=== PATIENT | female | born 1955 | race Caucasian/White ===

== ENCOUNTER 2020-04-23 16:35 | Observation (INO) ==
[2020-04-23 18:01] LABS: Basophils % 0.6 %; Eosinophils % 0.3 %; Hematocrit 42.4 % (35.3-44.9); Hemoglobin 13.3 g/dL (11.5-15.4); Immature Granulocytes % 0.9 % (0-4); Lymphocytes # 0.4 K/mcL (0.6-4.6); Lymphocytes % 10.3 %; Mean Corpuscular HGB Conc 31.4 g/dL (31.6-35.5); Mean Corpuscular Hemoglobin 26.7 pg (28.0-33.3); Mean Platelet Volume 12.5 fL (9.4-12.4); Monocytes # 0.7 K/mcL (0.0-1.3); Monocytes % 19.1 %; Platelet Count 119 K/mcL (140-400); Red Blood Count 4.99 M/mcL (3.82-4.97); Red Cell Distribution Width 16.2 % (11.5-14.5); Segmented Neutrophils % 68.8 %; White Blood Count 3.4 K/mcL (4.3-11.1)
[2020-04-23 18:02] LABS: Neutrophils # 2.3 K/mcL (1.6-8.9)
[2020-04-23 18:15] LABS: Alanine Aminotransferase 22 Units/L (7-52); Albumin 4.1 g/dL (3.5-5.7); Albumin/Globulin Ratio 1.3 (1.1-2.2); Alkaline Phosphatase 57 Units/L (34-104); Aspartate Amino Transferase 29 Units/L (13-39); BUN/Creatinine Ratio 22 (6-26); Bilirubin,Direct 0.2 mg/dL (0.0-0.2); Bilirubin,Indirect 0.4 mg/dL (0.0-1.0); Bilirubin,Total 0.6 mg/dL (0.3-1.0); Blood Urea Nitrogen 15 mg/dL (8-23); Calcium 8.8 mg/dL (8.6-10.3); Carbon Dioxide 27 mEq/L (23-29); Chloride 99 mEq/L (98-107); Globulin 3.2 g/dL (2.4-3.5); Glucose 112 mg/dL (70-105); Osmolality,Calculated 286 (280-300); Potassium 3.1 mEq/L (3.5-5.1); Sodium 137 mEq/L (136-145); Total Protein 7.3 g/dL (6.4-8.9); eGFR For African Americans > 60 (> 60); eGFR For Non-African Americans > 60 (> 60)
[2020-04-23 18:18] LABS: Platelet Estimate Decreased (Normal)
[2020-04-23] MEDS ORDERED: Cefepime HCl 1,000 MG in Water for inj. (sterile) 10 ML IVP STA (19:53)
[2020-04-23] MEDS ORDERED: Ondansetron 4 MG/2 ML VIAL IVP PRN (20:46)
[2020-04-23] MEDS ORDERED: Naloxone 0.4 MG/ML INJ IVP PRN (20:46)
[2020-04-23] MEDS ORDERED: Azithromycin 500 MG in 0.9 % Sodium Chloride 250 ML IVPB ONE (20:55)
[2020-04-24] MEDS: *HR* Enoxaparin 40 MG/0.4 ML SYRINGE SQ SCH (05:42)
[2020-04-24 07:15] LABS: Hematocrit 38.9 % (35.3-44.9); Hemoglobin 12.5 g/dL (11.5-15.4); Mean Corpuscular HGB Conc 32.1 g/dL (31.6-35.5); Mean Corpuscular Hemoglobin 27.3 pg (28.0-33.3); Mean Corpuscular Volume 84.9 fL (83.0-100.0); Mean Platelet Volume 12.4 fL (9.4-12.4); Platelet Count 104 K/mcL (140-400); Red Blood Count 4.58 M/mcL (3.82-4.97); Red Cell Distribution Width 16.4 % (11.5-14.5); White Blood Count 2.4 K/mcL (4.3-11.1)
[2020-04-24 07:24] LABS: INR 1.2; Prothrombin Time 14.3 Seconds (9.4-12.1)
[2020-04-24 07:35] LABS: BUN/Creatinine Ratio 25 (6-26); Blood Urea Nitrogen 15 mg/dL (8-23); Calcium 8.2 mg/dL (8.6-10.3); Carbon Dioxide 26 mEq/L (23-29); Chloride 103 mEq/L (98-107); Glucose 105 mg/dL (70-105); Osmolality,Calculated 287 (280-300); Potassium 3.2 mEq/L (3.5-5.1); Sodium 138 mEq/L (136-145); Troponin I < 0.03 ng/mL (< 0.04); eGFR For African Americans > 60 (> 60); eGFR For Non-African Americans > 60 (> 60)
[2020-04-24 07:58] LABS: Basophils # 0.1 K/mcL (0.0-0.2); Lymphocytes # 0.5 K/mcL (0.6-4.6); Monocytes # 0.3 K/mcL (0.0-1.3); Neutrophils # 1.4 K/mcL (1.6-8.9); Platelet Estimate Decreased (Normal); Reactive Lymphocytes Present (Not Present)
[2020-04-24] MEDS: levoFLOXacin 750 MG TABLET PO SCH (08:28)
[2020-04-24] MEDS: Dexamethasone 4 MG/ML VIAL IVP SCH (08:28)
[2020-04-24] MEDS: hydroCHLOROthiazide 25 MG TABLET PO SCH (08:29)
[2020-04-25 00:57] LABS: Bilirubin,Urine Negative (Negative); Blood,Urine Negative (Negative); Clarity,Urine Clear (Clear); Color,Urine Yellow (Yellow); Glucose,Urine (UA) Normal (Normal); Ketones,Urine Negative (Negative); Leukocyte Esterase,Urine Negative (Negative); Mucus,Urine Few per lpf (None-Few); Nitrite,Urine Negative (Negative); PH,Urine 6.5 pH Units (5.0-8.0); Protein,Urine 30 mg/dL (Neg-Trace); RBC,Urine 0-3 per hpf (0-3); Specific Gravity,Urine > 1.030 (1.010-1.025); Urobilinogen,Urine Normal (Normal); WBC,Urine 0-3 per hpf (0-3)
[2020-04-25] MEDS: *HR* Enoxaparin 40 MG/0.4 ML SYRINGE SQ SCH (05:56)
[2020-04-25 06:44] LABS: Basophils % 0.3 %; Hematocrit 37.8 % (35.3-44.9); Hemoglobin 11.8 g/dL (11.5-15.4); Immature Granulocytes % 3.4 % (0-4); Lymphocytes # 0.4 K/mcL (0.6-4.6); Lymphocytes % 11.9 %; Mean Corpuscular HGB Conc 31.2 g/dL (31.6-35.5); Mean Corpuscular Hemoglobin 26.8 pg (28.0-33.3); Mean Corpuscular Volume 85.9 fL (83.0-100.0); Mean Platelet Volume 12.2 fL (9.4-12.4); Monocytes # 0.5 K/mcL (0.0-1.3); Neutrophils # 2.2 K/mcL (1.6-8.9); Platelet Count 107 K/mcL (140-400); Red Cell Distribution Width 16.2 % (11.5-14.5); Segmented Neutrophils % 69.4 %; White Blood Count 3.2 K/mcL (4.3-11.1)
[2020-04-25 06:52] LABS: Fibrinogen 430 mg/dL (169-393)
[2020-04-25 06:53] LABS: D-Dimer 877 ng/mLFEU (0-500)
[2020-04-25 07:03] LABS: BUN/Creatinine Ratio 23 (6-26); Blood Urea Nitrogen 15 mg/dL (8-23); Calcium 8.6 mg/dL (8.6-10.3); Carbon Dioxide 28 mEq/L (23-29); Chloride 106 mEq/L (98-107); Glucose 105 mg/dL (70-105); Lactate Dehydrogenase 303 Units/L (140-271); Magnesium 1.9 mg/dL (1.6-2.6); Osmolality,Calculated 295 (280-300); Phosphorous 3.2 mg/dL (2.7-4.5); Potassium 3.5 mEq/L (3.5-5.1); Sodium 142 mEq/L (136-145); eGFR For African Americans > 60 (> 60); eGFR For Non-African Americans > 60 (> 60)
[2020-04-25 08:05] VITALS: BP 130/83
[2020-04-25] MEDS: hydroCHLOROthiazide 25 MG TABLET PO SCH (08:52)
[2020-04-25] MEDS: levoFLOXacin 750 MG TABLET PO SCH (08:52)
[2020-04-25] MEDS: Dexamethasone 4 MG/ML VIAL IVP SCH (08:52)
[2020-04-25] MEDS ORDERED: Cholecalciferol (D-3) 1,000 UNIT (25MCG) TABLET PO SCH (09:00)
== END 2020-04-25 11:54 | disposition home or self-care (01) ==
LOC: EMEROOARM 16:35 → 2NENU 16:35 → SUATTDRO 20:12 → 2NENU 20:53
PROVIDERS: ADMIT Family Medicine; ATTEND Internal Medicine

== ENCOUNTER 2020-04-29 08:19 | Inpatient (IN) ==
[2020-04-29] MEDS ORDERED: Naloxone 0.4 MG/ML INJ IVP PRN (13:27)
[2020-04-29] MEDS ORDERED: Potassium Chloride 20 MEQ, Lidocaine 1% 2 ML in 0.9 % Sodium Chloride 250 ML IVPB ONE (13:43)
[2020-04-29] MEDS: Dexamethasone 4 MG/ML VIAL IVP SCH (15:17)
[2020-04-29] MEDS: levoFLOXacin 750 MG TABLET PO SCH (15:18)
[2020-04-29] MEDS: *HR* Heparin 5,000 UNIT/ML VIAL SQ SCH ×2 (15:19→21:08)
[2020-04-29] MEDS ORDERED: 0.9 % Sodium Chloride 250 ML ONE (22:58)
[2020-04-30] MEDS: *HR* Heparin 5,000 UNIT/ML VIAL SQ SCH (06:11)
[2020-04-30] MEDS: Dexamethasone 4 MG/ML VIAL IVP SCH (08:21)
[2020-04-30] MEDS: levoFLOXacin 750 MG TABLET PO SCH (08:21)
[2020-04-30 09:57] LABS: Basophils % 0.4 %; Eosinophils % 0.2 %; Hematocrit 37.1 % (35.3-44.9); Hemoglobin 11.5 g/dL (11.5-15.4); Immature Granulocytes % 1.3 % (0-4); Immature Platelets 8.6 % (1.1-6.1); Lymphocytes # 0.3 K/mcL (0.6-4.6); Lymphocytes % 5.2 %; Mean Corpuscular Hemoglobin 26.7 pg (28.0-33.3); Mean Corpuscular Volume 86.1 fL (83.0-100.0); Mean Platelet Volume 11.7 fL (9.4-12.4); Monocytes # 0.3 K/mcL (0.0-1.3); Monocytes % 5.9 %; Neutrophils # 4.9 K/mcL (1.6-8.9); Platelet Count 130 K/mcL (140-400); Red Blood Count 4.31 M/mcL (3.82-4.97); Red Cell Distribution Width 16.5 % (11.5-14.5); White Blood Count 5.6 K/mcL (4.3-11.1)
[2020-04-30 10:09] LABS: Alanine Aminotransferase 19 Units/L (7-52); Albumin 3.5 g/dL (3.5-5.7); Albumin/Globulin Ratio 1.1 (1.1-2.2); Alkaline Phosphatase 48 Units/L (34-104); Aspartate Amino Transferase 40 Units/L (13-39); BUN/Creatinine Ratio 26 (6-26); Bilirubin,Total 0.5 mg/dL (0.3-1.0); Blood Urea Nitrogen 14 mg/dL (8-23); Calcium 8.4 mg/dL (8.6-10.3); Carbon Dioxide 25 mEq/L (23-29); Chloride 105 mEq/L (98-107); Globulin 3.1 g/dL (2.4-3.5); Glucose 135 mg/dL (70-105); Osmolality,Calculated 293 (280-300); Potassium 3.8 mEq/L (3.5-5.1); Sodium 140 mEq/L (136-145); Total Protein 6.6 g/dL (6.4-8.9); eGFR For African Americans > 60 (> 60); eGFR For Non-African Americans > 60 (> 60)
[2020-04-30] MEDS: Loratadine 10 MG TABLET PO SCH (11:07)
[2020-04-30] MEDS: *HR* Enoxaparin 40 MG/0.4 ML SYRINGE SQ SCH (15:49)
[2020-04-30] MEDS ORDERED: Furosemide 20 MG/2 ML VIAL IVP ONE (17:29)
[2020-04-30] MEDS: Ipratropium 1 PUFF INHALER IH PRN (18:56)
[2020-04-30] MEDS ORDERED: 0.9 % Sodium Chloride 500 ML ONE (21:37)
[2020-05-01] MEDS: *HR* Enoxaparin 40 MG/0.4 ML SYRINGE SQ SCH (06:02)
[2020-05-01] MEDS: Azithromycin 250 MG TABLET PO SCH (08:27)
[2020-05-01] MEDS: Spironolactone 25 MG TABLET PO SCH (08:27)
[2020-05-01] MEDS: Loratadine 10 MG TABLET PO SCH (08:28)
[2020-05-01] MEDS: Furosemide 40 MG/4 ML VIAL IVP SCH ×2 (08:28→20:48)
[2020-05-01] MEDS: Dexamethasone 4 MG/ML VIAL IVP SCH (08:28)
[2020-05-01] MEDS ORDERED: lisinopriL 5 MG TABLET PO SCH (09:00)
[2020-05-01 11:30] LABS: Hemoglobin 11.3 g/dL (11.5-15.4); Immature Granulocytes % 0.9 % (0-4); Lymphocytes # 0.2 K/mcL (0.6-4.6); Mean Corpuscular HGB Conc 32.3 g/dL (31.6-35.5); Mean Corpuscular Hemoglobin 27.9 pg (28.0-33.3); Mean Corpuscular Volume 86.4 fL (83.0-100.0); Mean Platelet Volume 11.6 fL (9.4-12.4); Monocytes # 0.4 K/mcL (0.0-1.3); Monocytes % 4.7 %; Neutrophils # 7.3 K/mcL (1.6-8.9); Platelet Count 149 K/mcL (140-400); Red Blood Count 4.05 M/mcL (3.82-4.97); Red Cell Distribution Width 16.3 % (11.5-14.5); Segmented Neutrophils % 92.4 %; White Blood Count 7.9 K/mcL (4.3-11.1)
[2020-05-01 11:38] LABS: Platelet Estimate Normal (Normal)
[2020-05-01 11:42] LABS: BUN/Creatinine Ratio 27 (6-26); Blood Urea Nitrogen 16 mg/dL (8-23); Calcium 8.4 mg/dL (8.6-10.3); Carbon Dioxide 25 mEq/L (23-29); Chloride 102 mEq/L (98-107); Glucose 130 mg/dL (70-105); Osmolality,Calculated 289 (280-300); Potassium 3.6 mEq/L (3.5-5.1); Sodium 138 mEq/L (136-145); eGFR For African Americans > 60 (> 60); eGFR For Non-African Americans > 60 (> 60)
[2020-05-02 02:33] LABS: Basophils % 0.2 %; Hematocrit 36.2 % (35.3-44.9); Hemoglobin 11.5 g/dL (11.5-15.4); Immature Granulocytes % 0.8 % (0-4); Lymphocytes # 0.4 K/mcL (0.6-4.6); Lymphocytes % 5.9 %; Mean Corpuscular HGB Conc 31.8 g/dL (31.6-35.5); Mean Corpuscular Hemoglobin 26.9 pg (28.0-33.3); Mean Corpuscular Volume 84.6 fL (83.0-100.0); Mean Platelet Volume 11.7 fL (9.4-12.4); Monocytes # 0.3 K/mcL (0.0-1.3); Monocytes % 5.1 %; Neutrophils # 5.7 K/mcL (1.6-8.9); Platelet Count 180 K/mcL (140-400); Red Blood Count 4.28 M/mcL (3.82-4.97); Red Cell Distribution Width 16.2 % (11.5-14.5); White Blood Count 6.4 K/mcL (4.3-11.1)
[2020-05-02 02:50] LABS: BUN/Creatinine Ratio 28 (6-26); Blood Urea Nitrogen 18 mg/dL (8-23); Calcium 8.7 mg/dL (8.6-10.3); Carbon Dioxide 25 mEq/L (23-29); Chloride 101 mEq/L (98-107); Glucose 126 mg/dL (70-105); Osmolality,Calculated 289 (280-300); Potassium 3.7 mEq/L (3.5-5.1); Sodium 138 mEq/L (136-145); eGFR For African Americans > 60 (> 60); eGFR For Non-African Americans > 60 (> 60)
[2020-05-02 03:08] LABS: Magnesium 2.2 mg/dL (1.6-2.6)
[2020-05-02 03:14] LABS: D-Dimer 1558 ng/mLFEU (0-500)
[2020-05-02 03:16] LABS: Fibrinogen 822 mg/dL (169-393)
[2020-05-02] MEDS: *HR* Enoxaparin 40 MG/0.4 ML SYRINGE SQ SCH (06:10)
[2020-05-02] MEDS ORDERED: *HR* Heparin 5,000 UNIT/ML VIAL IVP ONE (07:35)
[2020-05-02] MEDS ORDERED: *HR* Heparin 5,000 UNIT/ML VIAL IVP PRN ×2 (07:35)
[2020-05-02 08:14] LABS: Hematocrit 33.4 % (35.3-44.9); Hemoglobin 10.6 g/dL (11.5-15.4); Mean Corpuscular HGB Conc 31.7 g/dL (31.6-35.5); Mean Corpuscular Hemoglobin 26.8 pg (28.0-33.3); Mean Corpuscular Volume 84.3 fL (83.0-100.0); Mean Platelet Volume 11.2 fL (9.4-12.4); Platelet Count 157 K/mcL (140-400); Red Blood Count 3.96 M/mcL (3.82-4.97); Red Cell Distribution Width 16.2 % (11.5-14.5); White Blood Count 6.4 K/mcL (4.3-11.1)
[2020-05-02 08:20] LABS: Heparin anti-factor XA UFH 0.2 IU/mL (0.30-0.70); INR 1.3; Prothrombin Time 14.8 Seconds (9.4-12.1)
[2020-05-02] MEDS: Loratadine 10 MG TABLET PO SCH (08:59)
[2020-05-02] MEDS: Azithromycin 250 MG TABLET PO SCH (08:59)
[2020-05-02] MEDS: Dexamethasone 4 MG/ML VIAL IVP SCH (09:00)
[2020-05-02] MEDS: Furosemide 40 MG/4 ML VIAL IVP SCH ×2 (09:00→20:07)
[2020-05-02] MEDS: Spironolactone 25 MG TABLET PO SCH (09:00)
[2020-05-02] MEDS: Heparin 25,000UNIT/250ML 1/2NS 25,000 UNIT/250 ML IV.SOLN IVC SCH (09:01)
[2020-05-03 00:38] LABS: Basophils % 0.2 %; Hematocrit 33.6 % (35.3-44.9); Hemoglobin 10.9 g/dL (11.5-15.4); Immature Granulocytes % 0.7 % (0-4); Lymphocytes # 0.2 K/mcL (0.6-4.6); Lymphocytes % 3.3 %; Mean Corpuscular HGB Conc 32.4 g/dL (31.6-35.5); Mean Corpuscular Hemoglobin 27.7 pg (28.0-33.3); Mean Corpuscular Volume 85.3 fL (83.0-100.0); Mean Platelet Volume 11.8 fL (9.4-12.4); Monocytes # 0.3 K/mcL (0.0-1.3); Monocytes % 4.8 %; Neutrophils # 5.5 K/mcL (1.6-8.9); Platelet Count 173 K/mcL (140-400); Red Blood Count 3.94 M/mcL (3.82-4.97); Red Cell Distribution Width 15.6 % (11.5-14.5)
[2020-05-03 00:56] LABS: BUN/Creatinine Ratio 36 (6-26); Blood Urea Nitrogen 20 mg/dL (8-23); Calcium 8.6 mg/dL (8.6-10.3); Carbon Dioxide 25 mEq/L (23-29); Chloride 101 mEq/L (98-107); Glucose 129 mg/dL (70-105); Osmolality,Calculated 290 (280-300); Potassium 3.6 mEq/L (3.5-5.1); Sodium 138 mEq/L (136-145); eGFR For African Americans > 60 (> 60); eGFR For Non-African Americans > 60 (> 60)
[2020-05-03] MEDS: Heparin 25,000UNIT/250ML 1/2NS 25,000 UNIT/250 ML IV.SOLN IVC SCH (07:31)
[2020-05-03] MEDS: Loratadine 10 MG TABLET PO SCH (07:58)
[2020-05-03] MEDS: Azithromycin 250 MG TABLET PO SCH (07:58)
[2020-05-03] MEDS: Spironolactone 25 MG TABLET PO SCH (07:58)
[2020-05-03] MEDS: Dexamethasone 4 MG/ML VIAL IVP SCH (07:58)
[2020-05-03] MEDS: Furosemide 40 MG/4 ML VIAL IVP SCH ×2 (07:59→20:53)
[2020-05-03] MEDS ORDERED: amLODIPine 5 MG TABLET PO SCH (09:00)
[2020-05-04] MEDS: Benzonatate 100 MG CAPSULE PO PRN ×2 (06:22→21:16)
[2020-05-04 06:33] LABS: Basophils % 0.2 %; Eosinophils # 0.1 K/mcL (0.0-0.6); Eosinophils % 0.6 %; Hematocrit 34.6 % (35.3-44.9); Hemoglobin 11.2 g/dL (11.5-15.4); Immature Granulocytes % 1.2 % (0-4); Lymphocytes # 0.3 K/mcL (0.6-4.6); Lymphocytes % 3.1 %; Mean Corpuscular HGB Conc 32.4 g/dL (31.6-35.5); Mean Corpuscular Volume 83.4 fL (83.0-100.0); Mean Platelet Volume 11.7 fL (9.4-12.4); Monocytes # 0.3 K/mcL (0.0-1.3); Monocytes % 3.5 %; Neutrophils # 7.8 K/mcL (1.6-8.9); Platelet Count 194 K/mcL (140-400); Red Blood Count 4.15 M/mcL (3.82-4.97); Red Cell Distribution Width 15.4 % (11.5-14.5); Segmented Neutrophils % 91.4 %; White Blood Count 8.6 K/mcL (4.3-11.1)
[2020-05-04 06:40] LABS: D-Dimer 1573 ng/mLFEU (0-500)
[2020-05-04 06:42] LABS: Fibrinogen 793 mg/dL (169-393)
[2020-05-04 06:56] LABS: BUN/Creatinine Ratio 40 (6-26); Blood Urea Nitrogen 19 mg/dL (8-23); Calcium 8.7 mg/dL (8.6-10.3); Carbon Dioxide 26 mEq/L (23-29); Chloride 98 mEq/L (98-107); Glucose 98 mg/dL (70-105); Osmolality,Calculated 290 (280-300); Potassium 3.2 mEq/L (3.5-5.1); Sodium 139 mEq/L (136-145); eGFR For African Americans > 60 (> 60); eGFR For Non-African Americans > 60 (> 60)
[2020-05-04] MEDS: Loratadine 10 MG TABLET PO SCH (07:39)
[2020-05-04] MEDS: Spironolactone 25 MG TABLET PO SCH (07:39)
[2020-05-04] MEDS: Furosemide 40 MG/4 ML VIAL IVP SCH ×2 (07:39→21:00)
[2020-05-04] MEDS: Azithromycin 250 MG TABLET PO SCH (07:39)
[2020-05-04] MEDS: Dexamethasone 4 MG/ML VIAL IVP SCH (07:40)
[2020-05-04] MEDS: Heparin 25,000UNIT/250ML 1/2NS 25,000 UNIT/250 ML IV.SOLN IVC SCH (07:40)
[2020-05-04] MEDS ORDERED: amLODIPine 5 MG TABLET PO SCH (09:00)
[2020-05-04] MEDS: *HR* Enoxaparin 40 MG/0.4 ML SYRINGE SQ SCH (13:09)
[2020-05-05] MEDS: Benzonatate 100 MG CAPSULE PO PRN (05:37)
[2020-05-05 05:41] LABS: Basophils % 0.2 %; Eosinophils # 0.1 K/mcL (0.0-0.6); Eosinophils % 0.5 %; Hematocrit 36.2 % (35.3-44.9); Hemoglobin 11.3 g/dL (11.5-15.4); Immature Granulocytes % 1.7 % (0-4); Lymphocytes # 0.3 K/mcL (0.6-4.6); Lymphocytes % 2.8 %; Mean Corpuscular HGB Conc 31.2 g/dL (31.6-35.5); Mean Corpuscular Hemoglobin 26.7 pg (28.0-33.3); Mean Corpuscular Volume 85.4 fL (83.0-100.0); Mean Platelet Volume 11.8 fL (9.4-12.4); Monocytes # 0.3 K/mcL (0.0-1.3); Monocytes % 2.8 %; Neutrophils # 8.6 K/mcL (1.6-8.9); Platelet Count 219 K/mcL (140-400); Red Blood Count 4.24 M/mcL (3.82-4.97); Red Cell Distribution Width 15.3 % (11.5-14.5); White Blood Count 9.3 K/mcL (4.3-11.1)
[2020-05-05 06:00] LABS: BUN/Creatinine Ratio 38 (6-26); Blood Urea Nitrogen 19 mg/dL (8-23); Calcium 8.8 mg/dL (8.6-10.3); Carbon Dioxide 27 mEq/L (23-29); Chloride 99 mEq/L (98-107); Glucose 101 mg/dL (70-105); Osmolality,Calculated 290 (280-300); Potassium 3.6 mEq/L (3.5-5.1); Sodium 139 mEq/L (136-145); eGFR For African Americans > 60 (> 60); eGFR For Non-African Americans > 60 (> 60)
[2020-05-05 06:09] LABS: Fibrinogen 853 mg/dL (169-393)
[2020-05-05 08:57] LABS: D-Dimer 4234 ng/mLFEU (0-500)
[2020-05-05] MEDS: *HR* Enoxaparin 40 MG/0.4 ML SYRINGE SQ SCH ×2 (09:03→20:11)
[2020-05-05] MEDS: Loratadine 10 MG TABLET PO SCH (09:03)
[2020-05-05] MEDS: Furosemide 40 MG/4 ML VIAL IVP SCH ×2 (09:03→20:10)
[2020-05-05] MEDS: Azithromycin 250 MG TABLET PO SCH (09:03)
[2020-05-05] MEDS: Dexamethasone 4 MG/ML VIAL IVP SCH (09:03)
[2020-05-05] MEDS: Ipratropium 1 PUFF INHALER IH SCH ×3 (11:44→22:05)
[2020-05-05] MEDS ORDERED: Dexamethasone Sodium Phos/PF 10 MG/ML VIAL IVP ONE (13:47)
[2020-05-05] MEDS: Heparin 25,000UNIT/250ML 1/2NS 25,000 UNIT/250 ML IV.SOLN IVC SCH (22:32)
[2020-05-06] MEDS: Ipratropium 1 PUFF INHALER IH SCH ×4 (02:50→22:17)
[2020-05-06] MEDS: Doxycycline 100 MG in 0.9 % Sodium Chloride Mini Bag 100 ML IVPB SCH ×2 (05:31→16:52)
[2020-05-06] MEDS ORDERED: Dexamethasone Sodium Phos/PF 10 MG/ML VIAL IVP SCH (09:00)
[2020-05-06] MEDS: Dexamethasone Sodium Phos/PF 10 MG/ML VIAL IVP SCH (09:38)
[2020-05-06] MEDS: Furosemide 40 MG/4 ML VIAL IVP SCH ×2 (09:38→21:33)
[2020-05-06] MEDS: Loratadine 10 MG TABLET PO SCH (09:39)
[2020-05-06] MEDS: *HR* Enoxaparin 40 MG/0.4 ML SYRINGE SQ SCH (09:39)
[2020-05-06 09:56] LABS: Hematocrit 36.9 % (35.3-44.9); Hemoglobin 11.7 g/dL (11.5-15.4); Mean Corpuscular HGB Conc 31.7 g/dL (31.6-35.5); Mean Corpuscular Hemoglobin 26.6 pg (28.0-33.3); Mean Corpuscular Volume 83.9 fL (83.0-100.0); Mean Platelet Volume 11.1 fL (9.4-12.4); Platelet Count 225 K/mcL (140-400); Red Cell Distribution Width 15.3 % (11.5-14.5)
[2020-05-06 10:02] LABS: INR 1.4; Prothrombin Time 15.6 Seconds (9.4-12.1)
[2020-05-06 10:04] LABS: Activated Partial Thrombo Time 21.9 Seconds (26.0-36.0)
[2020-05-06 10:18] LABS: Alanine Aminotransferase 45 Units/L (7-52); Albumin 3.5 g/dL (3.5-5.7); Alkaline Phosphatase 82 Units/L (34-104); Aspartate Amino Transferase 37 Units/L (13-39); BUN/Creatinine Ratio 48 (6-26); Bilirubin,Total 0.5 mg/dL (0.3-1.0); Blood Urea Nitrogen 25 mg/dL (8-23); C-Reactive Protein 255 mg/L (Less than 10); Calcium 8.9 mg/dL (8.6-10.3); Carbon Dioxide 27 mEq/L (23-29); Chloride 97 mEq/L (98-107); Globulin 3.5 g/dL (2.4-3.5); Glucose 136 mg/dL (70-105); Lactate Dehydrogenase 634 Units/L (140-271); Magnesium 2.4 mg/dL (1.6-2.6); Osmolality,Calculated 288 (280-300); Phosphorous 3.6 mg/dL (2.7-4.5); Potassium 3.6 mEq/L (3.5-5.1); Sodium 136 mEq/L (136-145); eGFR For African Americans > 60 (> 60); eGFR For Non-African Americans > 60 (> 60)
[2020-05-06 10:36] LABS: Ferritin 1353 ng/mL (10-120)
[2020-05-06] MEDS ORDERED: *HR* Heparin 5,000 UNIT/ML VIAL IVP ONE (15:02)
[2020-05-06] MEDS ORDERED: *HR* Heparin 5,000 UNIT/ML VIAL IVP PRN (15:02)
[2020-05-06] MEDS ORDERED: Heparin 25,000UNIT/250ML 1/2NS 25,000 UNIT/250 ML IV.SOLN IVC SCH (15:15)
[2020-05-06 15:55] LABS: Heparin anti-factor XA UFH 0.34 IU/mL (0.30-0.70)
[2020-05-06 15:56] LABS: INR 1.3; Prothrombin Time 15.1 Seconds (9.4-12.1)
[2020-05-06] MEDS: Heparin 25,000UNIT/250ML 1/2NS 25,000 UNIT/250 ML IV.SOLN IVC SCH (16:42)
[2020-05-07 01:33] LABS: Hematocrit 38.2 % (35.3-44.9); Mean Corpuscular HGB Conc 31.4 g/dL (31.6-35.5); Mean Corpuscular Hemoglobin 26.5 pg (28.0-33.3); Mean Corpuscular Volume 84.5 fL (83.0-100.0); Mean Platelet Volume 10.9 fL (9.4-12.4); Platelet Count 260 K/mcL (140-400); Red Blood Count 4.52 M/mcL (3.82-4.97); Red Cell Distribution Width 15.6 % (11.5-14.5); White Blood Count 9.9 K/mcL (4.3-11.1)
[2020-05-07 01:54] LABS: BUN/Creatinine Ratio 47 (6-26); Blood Urea Nitrogen 31 mg/dL (8-23); C-Reactive Protein 153 mg/L (Less than 10); Calcium 8.8 mg/dL (8.6-10.3); Carbon Dioxide 28 mEq/L (23-29); Chloride 95 mEq/L (98-107); Glucose 167 mg/dL (70-105); Lactate Dehydrogenase 615 Units/L (140-271); Magnesium 2.4 mg/dL (1.6-2.6); Osmolality,Calculated 294 (280-300); Phosphorous 4.1 mg/dL (2.7-4.5); Potassium 3.7 mEq/L (3.5-5.1); Sodium 137 mEq/L (136-145); eGFR For African Americans > 60 (> 60); eGFR For Non-African Americans > 60 (> 60)
[2020-05-07] MEDS: *HR* Heparin 5,000 UNIT/ML VIAL IVP PRN ×2 (02:02→14:45)
[2020-05-07 02:18] LABS: Ferritin > 1500 ng/mL (10-120)
[2020-05-07] MEDS: Ipratropium 1 PUFF INHALER IH SCH ×4 (04:23→22:28)
[2020-05-07] MEDS: Doxycycline 100 MG in 0.9 % Sodium Chloride Mini Bag 100 ML IVPB SCH (06:06)
[2020-05-07] MEDS: Dexamethasone Sodium Phos/PF 10 MG/ML VIAL IVP SCH (08:03)
[2020-05-07] MEDS: Furosemide 40 MG/4 ML VIAL IVP SCH (08:04)
[2020-05-07] MEDS: Loratadine 10 MG TABLET PO SCH (08:04)
[2020-05-07] MEDS: Heparin 25,000UNIT/250ML 1/2NS 25,000 UNIT/250 ML IV.SOLN IVC SCH (09:46)
[2020-05-07] MEDS ORDERED: Furosemide 40 MG/4 ML VIAL IVP STA (17:29)
[2020-05-07] MEDS: Doxycycline 100 MG CAPSULE PO SCH (21:18)
[2020-05-08] MEDS: Heparin 25,000UNIT/250ML 1/2NS 25,000 UNIT/250 ML IV.SOLN IVC SCH (02:07)
[2020-05-08] MEDS: Ipratropium 1 PUFF INHALER IH SCH ×4 (03:59→22:07)
[2020-05-08 05:36] LABS: Hematocrit 38.7 % (35.3-44.9); Hemoglobin 12.5 g/dL (11.5-15.4); Mean Corpuscular HGB Conc 32.3 g/dL (31.6-35.5); Mean Corpuscular Hemoglobin 27.4 pg (28.0-33.3); Mean Corpuscular Volume 84.9 fL (83.0-100.0); Mean Platelet Volume 11.3 fL (9.4-12.4); Platelet Count 270 K/mcL (140-400); Red Blood Count 4.56 M/mcL (3.82-4.97); Red Cell Distribution Width 15.3 % (11.5-14.5); White Blood Count 10.9 K/mcL (4.3-11.1)
[2020-05-08 05:54] LABS: BUN/Creatinine Ratio 59 (6-26); Blood Urea Nitrogen 36 mg/dL (8-23); Carbon Dioxide 28 mEq/L (23-29); Chloride 98 mEq/L (98-107); Glucose 138 mg/dL (70-105); Lactate Dehydrogenase 556 Units/L (140-271); Magnesium 2.4 mg/dL (1.6-2.6); Osmolality,Calculated 297 (280-300); Phosphorous 4.2 mg/dL (2.7-4.5); Potassium 3.5 mEq/L (3.5-5.1); Sodium 138 mEq/L (136-145); eGFR For African Americans > 60 (> 60); eGFR For Non-African Americans > 60 (> 60)
[2020-05-08 06:11] LABS: Ferritin 1479 ng/mL (10-120)
[2020-05-08 09:13] LABS: C-Reactive Protein 85 mg/L (Less than 10)
[2020-05-08] MEDS: Furosemide 40 MG/4 ML VIAL IVP SCH (09:16)
[2020-05-08] MEDS: Loratadine 10 MG TABLET PO SCH ×3 (09:16→11:30)
[2020-05-08] MEDS: Doxycycline 100 MG CAPSULE PO SCH ×4 (09:16→19:24)
[2020-05-08] MEDS: Dexamethasone Sodium Phos/PF 10 MG/ML VIAL IVP SCH (09:17)
[2020-05-08 10:50] LABS: ABG Base Excess 5 mEq/L (-2 to 3); ABG HCO3 28 mEq/L (21-27); ABG Oxygen Saturation 89 % (95-98); ABG PCO2 37 mmHg (35-45); ABG PH 7.49 pH Units (7.32-7.45); ABG PO2 52 mmHg (85-104); ABG TCO2 29 mEq/L (20-26)
[2020-05-08] MEDS ORDERED: *HR* Enoxaparin 40 MG/0.4 ML SYRINGE SQ ONE (16:00)
[2020-05-09] MEDS: Ipratropium 1 PUFF INHALER IH SCH ×5 (03:53→20:30)
[2020-05-09] MEDS: Loratadine 10 MG TABLET PO SCH (07:29)
[2020-05-09] MEDS: Doxycycline 100 MG CAPSULE PO SCH ×2 (07:29→19:28)
[2020-05-09] MEDS: Furosemide 40 MG/4 ML VIAL IVP SCH (07:30)
[2020-05-09] MEDS: Dexamethasone Sodium Phos/PF 10 MG/ML VIAL IVP SCH (07:30)
[2020-05-09 10:45] LABS: Fibrinogen 672 mg/dL (169-393)
[2020-05-09 11:05] LABS: D-Dimer 12231 ng/mLFEU (0-500)
[2020-05-09 11:10] LABS: Alanine Aminotransferase 41 Units/L (7-52); Albumin 3.7 g/dL (3.5-5.7); Albumin/Globulin Ratio 1.2 (1.1-2.2); Alkaline Phosphatase 88 Units/L (34-104); Aspartate Amino Transferase 38 Units/L (13-39); BUN/Creatinine Ratio 59 (6-26); Bilirubin,Total 0.6 mg/dL (0.3-1.0); Blood Urea Nitrogen 36 mg/dL (8-23); C-Reactive Protein 109 mg/L (Less than 10); Calcium 8.9 mg/dL (8.6-10.3); Carbon Dioxide 21 mEq/L (23-29); Chloride 97 mEq/L (98-107); Ferritin 1219 ng/mL (10-120); Globulin 3.2 g/dL (2.4-3.5); Glucose 156 mg/dL (70-105); Lactate Dehydrogenase 677 Units/L (140-271); Magnesium 2.2 mg/dL (1.6-2.6); Osmolality,Calculated 290 (280-300); Phosphorous 3.6 mg/dL (2.7-4.5); Potassium 3.8 mEq/L (3.5-5.1); Sodium 134 mEq/L (136-145); Total Protein 6.9 g/dL (6.4-8.9); eGFR For African Americans > 60 (> 60); eGFR For Non-African Americans > 60 (> 60)
[2020-05-09 13:20] LABS: Basophils % 0.2 %; Eosinophils % 0.1 %; Hematocrit 39.9 % (35.3-44.9); Immature Granulocytes % 3.9 % (0-4); Lymphocytes # 0.2 K/mcL (0.6-4.6); Lymphocytes % 1.2 %; Mean Corpuscular HGB Conc 32.6 g/dL (31.6-35.5); Mean Corpuscular Hemoglobin 27.3 pg (28.0-33.3); Mean Corpuscular Volume 83.6 fL (83.0-100.0); Mean Platelet Volume 11.4 fL (9.4-12.4); Monocytes # 0.4 K/mcL (0.0-1.3); Monocytes % 2.5 %; Platelet Count 251 K/mcL (140-400); Red Blood Count 4.77 M/mcL (3.82-4.97); Red Cell Distribution Width 14.9 % (11.5-14.5); Segmented Neutrophils % 92.1 %; White Blood Count 15.5 K/mcL (4.3-11.1)
[2020-05-09 13:27] LABS: Neutrophils # 14.3 K/mcL (1.6-8.9)
[2020-05-09 13:55] LABS: Platelet Estimate Normal (Normal)
[2020-05-09] MEDS ORDERED: *HR* Heparin 5,000 UNIT/ML VIAL IVP PRN ×2 (20:33)
[2020-05-09] MEDS: Heparin 25,000UNIT/250ML 1/2NS 25,000 UNIT/250 ML IV.SOLN IVC SCH (20:59)
[2020-05-09 22:22] LABS: Heparin anti-factor XA UFH 0.23 IU/mL (0.30-0.70)
[2020-05-09 22:23] LABS: INR 1.2; Prothrombin Time 13.9 Seconds (9.4-12.1)
[2020-05-10] MEDS: Ipratropium 1 PUFF INHALER IH SCH ×7 (00:08→23:51)
[2020-05-10 06:12] LABS: Basophils # 0.1 K/mcL (0.0-0.2); Basophils % 0.5 %; Eosinophils # 0.1 K/mcL (0.0-0.6); Eosinophils % 0.8 %; Hematocrit 38.3 % (35.3-44.9); Hemoglobin 12.5 g/dL (11.5-15.4); Immature Granulocytes % 4.4 % (0-4); Lymphocytes # 0.3 K/mcL (0.6-4.6); Lymphocytes % 1.8 %; Mean Corpuscular HGB Conc 32.6 g/dL (31.6-35.5); Mean Corpuscular Hemoglobin 27.1 pg (28.0-33.3); Mean Corpuscular Volume 82.9 fL (83.0-100.0); Mean Platelet Volume 11.6 fL (9.4-12.4); Monocytes # 0.4 K/mcL (0.0-1.3); Monocytes % 2.3 %; Neutrophils # 13.5 K/mcL (1.6-8.9); Nucleated Red Blood Cells 0.1 /100 WBC (0); Platelet Count 262 K/mcL (140-400); Red Blood Count 4.62 M/mcL (3.82-4.97); Red Cell Distribution Width 15.4 % (11.5-14.5); Segmented Neutrophils % 90.2 %; White Blood Count 14.9 K/mcL (4.3-11.1)
[2020-05-10 06:35] LABS: Heparin anti-factor XA UFH 1.63 IU/mL (0.30-0.70)
[2020-05-10] MEDS: Furosemide 40 MG/4 ML VIAL IVP SCH (07:53)
[2020-05-10] MEDS: Dexamethasone Sodium Phos/PF 10 MG/ML VIAL IVP SCH (07:53)
[2020-05-10] MEDS: Loratadine 10 MG TABLET PO SCH (07:53)
[2020-05-10] MEDS: Doxycycline 100 MG CAPSULE PO SCH ×2 (07:53→20:27)
[2020-05-10 10:37] LABS: Alanine Aminotransferase 48 Units/L (7-52); Albumin 3.5 g/dL (3.5-5.7); Albumin/Globulin Ratio 1.1 (1.1-2.2); Alkaline Phosphatase 84 Units/L (34-104); Aspartate Amino Transferase 36 Units/L (13-39); BUN/Creatinine Ratio 54 (6-26); Bilirubin,Total 0.6 mg/dL (0.3-1.0); Blood Urea Nitrogen 33 mg/dL (8-23); C-Reactive Protein 74 mg/L (Less than 10); Calcium 8.8 mg/dL (8.6-10.3); Carbon Dioxide 23 mEq/L (23-29); Chloride 95 mEq/L (98-107); Globulin 3.2 g/dL (2.4-3.5); Glucose 181 mg/dL (70-105); Lactate Dehydrogenase 544 Units/L (140-271); Magnesium 2.1 mg/dL (1.6-2.6); Osmolality,Calculated 292 (280-300); Potassium 3.5 mEq/L (3.5-5.1); Sodium 135 mEq/L (136-145); Total Protein 6.7 g/dL (6.4-8.9); eGFR For African Americans > 60 (> 60); eGFR For Non-African Americans > 60 (> 60)
[2020-05-10 10:54] LABS: Ferritin 1319 ng/mL (10-120)
[2020-05-10] MEDS: Ondansetron ODT 4 MG TAB.RAPDIS SL PRN (13:42)
[2020-05-10] MEDS: ALPRAZolam 0.25 MG TABLET PO PRN (14:39)
[2020-05-10] MEDS: Heparin 25,000UNIT/250ML 1/2NS 25,000 UNIT/250 ML IV.SOLN IVC SCH (16:18)
[2020-05-11] MEDS: Ipratropium 1 PUFF INHALER IH SCH ×5 (03:24→19:45)
[2020-05-11 05:40] LABS: Basophils # 0.1 K/mcL (0.0-0.2); Basophils % 0.4 %; Eosinophils # 0.1 K/mcL (0.0-0.6); Eosinophils % 0.6 %; Hematocrit 38.4 % (35.3-44.9); Hemoglobin 12.4 g/dL (11.5-15.4); Immature Granulocytes % 3.9 % (0-4); Lymphocytes # 0.3 K/mcL (0.6-4.6); Mean Corpuscular HGB Conc 32.3 g/dL (31.6-35.5); Mean Corpuscular Hemoglobin 27.4 pg (28.0-33.3); Mean Corpuscular Volume 84.8 fL (83.0-100.0); Mean Platelet Volume 11.3 fL (9.4-12.4); Monocytes # 0.4 K/mcL (0.0-1.3); Monocytes % 2.8 %; Neutrophils # 12.4 K/mcL (1.6-8.9); Platelet Count 216 K/mcL (140-400); Red Blood Count 4.53 M/mcL (3.82-4.97); Red Cell Distribution Width 15.2 % (11.5-14.5); Segmented Neutrophils % 90.3 %; White Blood Count 13.7 K/mcL (4.3-11.1)
[2020-05-11 05:44] LABS: Heparin anti-factor XA UFH 0.74 IU/mL (0.30-0.70)
[2020-05-11 06:09] LABS: Alanine Aminotransferase 46 Units/L (7-52); Albumin 3.4 g/dL (3.5-5.7); Albumin/Globulin Ratio 1.2 (1.1-2.2); Alkaline Phosphatase 78 Units/L (34-104); Aspartate Amino Transferase 35 Units/L (13-39); BUN/Creatinine Ratio 60 (6-26); Bilirubin,Total 0.6 mg/dL (0.3-1.0); Blood Urea Nitrogen 33 mg/dL (8-23); Calcium 9.2 mg/dL (8.6-10.3); Carbon Dioxide 26 mEq/L (23-29); Chloride 97 mEq/L (98-107); Globulin 2.9 g/dL (2.4-3.5); Glucose 144 mg/dL (70-105); Lactate Dehydrogenase 525 Units/L (140-271); Magnesium 2.5 mg/dL (1.6-2.6); Osmolality,Calculated 290 (280-300); Phosphorous 4.4 mg/dL (2.7-4.5); Potassium 3.9 mEq/L (3.5-5.1); Sodium 135 mEq/L (136-145); Total Protein 6.3 g/dL (6.4-8.9); eGFR For African Americans > 60 (> 60); eGFR For Non-African Americans > 60 (> 60)
[2020-05-11 07:07] LABS: Ferritin > 1500 ng/mL (10-120)
[2020-05-11] MEDS: Loratadine 10 MG TABLET PO SCH (08:24)
[2020-05-11 08:28] LABS: C-Reactive Protein 110 mg/L (Less than 10)
[2020-05-11] MEDS ORDERED: Furosemide 40 MG/4 ML VIAL IVP SCH (09:00)
[2020-05-11] MEDS ORDERED: Dexamethasone 4 MG/ML VIAL IVP SCH (09:00)
[2020-05-11] MEDS: ALPRAZolam 0.25 MG TABLET PO PRN (10:32)
[2020-05-11] MEDS: *HR* Enoxaparin 40 MG/0.4 ML SYRINGE SQ SCH (20:50)
[2020-05-12] MEDS: Ipratropium 1 PUFF INHALER IH SCH ×6 (00:03→20:17)
[2020-05-12 07:50] LABS: Basophils # 0.1 K/mcL (0.0-0.2); Basophils % 0.4 %; Eosinophils # 0.1 K/mcL (0.0-0.6); Eosinophils % 0.5 %; Hematocrit 39.5 % (35.3-44.9); Hemoglobin 12.6 g/dL (11.5-15.4); Immature Granulocytes % 4.4 % (0-4); Lymphocytes # 0.4 K/mcL (0.6-4.6); Lymphocytes % 2.9 %; Mean Corpuscular HGB Conc 31.9 g/dL (31.6-35.5); Mean Corpuscular Hemoglobin 27.4 pg (28.0-33.3); Mean Corpuscular Volume 85.9 fL (83.0-100.0); Mean Platelet Volume 11.5 fL (9.4-12.4); Monocytes # 0.5 K/mcL (0.0-1.3); Monocytes % 3.5 %; Nucleated Red Blood Cells 0.1 /100 WBC (0); Platelet Count 229 K/mcL (140-400); Red Cell Distribution Width 15.4 % (11.5-14.5); Segmented Neutrophils % 88.3 %; White Blood Count 14.7 K/mcL (4.3-11.1)
[2020-05-12 08:32] LABS: Ferritin > 1500 ng/mL (10-120)
[2020-05-12] MEDS: Loratadine 10 MG TABLET PO SCH (08:51)
[2020-05-12] MEDS: Dexamethasone Sodium Phos/PF 10 MG/ML VIAL IVP SCH (08:51)
[2020-05-12] MEDS: Furosemide 40 MG/4 ML VIAL IVP SCH (08:51)
[2020-05-12] MEDS: *HR* Enoxaparin 40 MG/0.4 ML SYRINGE SQ SCH ×2 (08:51→19:33)
[2020-05-12] MEDS ORDERED: Dexamethasone Sodium Phos/PF 10 MG/ML VIAL IVP SCH (09:00)
[2020-05-12 09:01] LABS: Alanine Aminotransferase 43 Units/L (7-52); Albumin 3.3 g/dL (3.5-5.7); Albumin/Globulin Ratio 1.1 (1.1-2.2); Alkaline Phosphatase 74 Units/L (34-104); Aspartate Amino Transferase 37 Units/L (13-39); BUN/Creatinine Ratio 49 (6-26); Bilirubin,Total 0.6 mg/dL (0.3-1.0); Blood Urea Nitrogen 28 mg/dL (8-23); Calcium 8.9 mg/dL (8.6-10.3); Carbon Dioxide 24 mEq/L (23-29); Chloride 95 mEq/L (98-107); Globulin 2.9 g/dL (2.4-3.5); Glucose 114 mg/dL (70-105); Lactate Dehydrogenase 569 Units/L (140-271); Magnesium 2.5 mg/dL (1.6-2.6); Osmolality,Calculated 282 (280-300); Sodium 133 mEq/L (136-145); Total Protein 6.2 g/dL (6.4-8.9); eGFR For African Americans > 60 (> 60); eGFR For Non-African Americans > 60 (> 60)
[2020-05-12] MEDS: ALPRAZolam 0.25 MG TABLET PO PRN (09:20)
[2020-05-12 09:33] LABS: C-Reactive Protein 73 mg/L (Less than 10)
[2020-05-12] MEDS: Fluconazole 100 MG TABLET PO SCH (11:38)
[2020-05-13] MEDS: Ipratropium 1 PUFF INHALER IH SCH ×6 (00:02→19:48)
[2020-05-13 05:20] LABS: Basophils # 0.1 K/mcL (0.0-0.2); Basophils % 0.4 %; Eosinophils # 0.1 K/mcL (0.0-0.6); Hematocrit 37.6 % (35.3-44.9); Hemoglobin 12.1 g/dL (11.5-15.4); Immature Granulocytes % 4.5 % (0-4); Lymphocytes # 0.3 K/mcL (0.6-4.6); Lymphocytes % 2.4 %; Mean Corpuscular HGB Conc 32.2 g/dL (31.6-35.5); Mean Corpuscular Hemoglobin 27.6 pg (28.0-33.3); Mean Corpuscular Volume 85.6 fL (83.0-100.0); Mean Platelet Volume 11.2 fL (9.4-12.4); Monocytes # 0.4 K/mcL (0.0-1.3); Monocytes % 3.4 %; Neutrophils # 10.5 K/mcL (1.6-8.9); Platelet Count 189 K/mcL (140-400); Red Blood Count 4.39 M/mcL (3.82-4.97); Red Cell Distribution Width 15.4 % (11.5-14.5); Segmented Neutrophils % 88.3 %; White Blood Count 11.9 K/mcL (4.3-11.1)
[2020-05-13 05:37] LABS: Magnesium 2.6 mg/dL (1.6-2.6); Phosphorous 4.2 mg/dL (2.7-4.5)
[2020-05-13 05:41] LABS: BUN/Creatinine Ratio 51 (6-26); Blood Urea Nitrogen 26 mg/dL (8-23); Calcium 8.8 mg/dL (8.6-10.3); Carbon Dioxide 28 mEq/L (23-29); Chloride 95 mEq/L (98-107); Glucose 119 mg/dL (70-105); Osmolality,Calculated 284 (280-300); Potassium 4.1 mEq/L (3.5-5.1); Sodium 134 mEq/L (136-145); eGFR For African Americans > 60 (> 60); eGFR For Non-African Americans > 60 (> 60)
[2020-05-13] MEDS: ALPRAZolam 0.25 MG TABLET PO PRN (06:33)
[2020-05-13] MEDS: Fluconazole 100 MG TABLET PO SCH (09:27)
[2020-05-13] MEDS: Dexamethasone Sodium Phos/PF 10 MG/ML VIAL IVP SCH (09:27)
[2020-05-13] MEDS: Loratadine 10 MG TABLET PO SCH (09:27)
[2020-05-13] MEDS: Furosemide 40 MG/4 ML VIAL IVP SCH ×2 (09:28→19:21)
[2020-05-13] MEDS: *HR* Enoxaparin 40 MG/0.4 ML SYRINGE SQ SCH ×2 (09:29→20:00)
[2020-05-13] MEDS: Heparin 25,000UNIT/250ML 1/2NS 25,000 UNIT/250 ML IV.SOLN IVC SCH (19:11)
[2020-05-14] MEDS: Ipratropium 1 PUFF INHALER IH SCH ×7 (00:20→23:38)
[2020-05-14] MEDS: Loratadine 10 MG TABLET PO SCH (09:14)
[2020-05-14] MEDS: Furosemide 40 MG/4 ML VIAL IVP SCH ×2 (09:14→20:40)
[2020-05-14] MEDS: Fluconazole 100 MG TABLET PO SCH (09:14)
[2020-05-14] MEDS: Dexamethasone Sodium Phos/PF 10 MG/ML VIAL IVP SCH (09:14)
[2020-05-14] MEDS: *HR* Enoxaparin 40 MG/0.4 ML SYRINGE SQ SCH ×2 (09:15→20:44)
[2020-05-14] MEDS: ALPRAZolam 0.25 MG TABLET PO PRN (09:25)
[2020-05-14 15:33] LABS: Basophils % 0.2 %; Eosinophils % 0.2 %; Hematocrit 37.6 % (35.3-44.9); Hemoglobin 12.3 g/dL (11.5-15.4); Immature Granulocytes % 2.4 % (0-4); Lymphocytes # 0.2 K/mcL (0.6-4.6); Mean Corpuscular HGB Conc 32.7 g/dL (31.6-35.5); Mean Corpuscular Hemoglobin 27.8 pg (28.0-33.3); Mean Corpuscular Volume 84.9 fL (83.0-100.0); Mean Platelet Volume 11.6 fL (9.4-12.4); Monocytes # 0.5 K/mcL (0.0-1.3); Monocytes % 2.5 %; Neutrophils # 17.7 K/mcL (1.6-8.9); Platelet Count 221 K/mcL (140-400); Red Blood Count 4.43 M/mcL (3.82-4.97); Red Cell Distribution Width 15.5 % (11.5-14.5); Segmented Neutrophils % 93.7 %
[2020-05-14 15:37] LABS: White Blood Count 18.9 K/mcL (4.3-11.1)
[2020-05-14 15:57] LABS: BUN/Creatinine Ratio 41 (6-26); Blood Urea Nitrogen 28 mg/dL (8-23); Carbon Dioxide 26 mEq/L (23-29); Chloride 93 mEq/L (98-107); Glucose 253 mg/dL (70-105); Magnesium 2.2 mg/dL (1.6-2.6); Osmolality,Calculated 288 (280-300); Phosphorous 3.9 mg/dL (2.7-4.5); Potassium 4.3 mEq/L (3.5-5.1); Sodium 132 mEq/L (136-145); eGFR For African Americans > 60 (> 60); eGFR For Non-African Americans > 60 (> 60)
[2020-05-14 16:06] LABS: Platelet Estimate Normal (Normal)
[2020-05-14] MEDS ORDERED: Furosemide 40 MG/4 ML VIAL IVP SCH (17:45)
[2020-05-15] MEDS: Ipratropium 1 PUFF INHALER IH SCH ×6 (03:59→23:31)
[2020-05-15 05:52] LABS: Hematocrit 39.5 % (35.3-44.9); Hemoglobin 12.8 g/dL (11.5-15.4); Mean Corpuscular HGB Conc 32.4 g/dL (31.6-35.5); Mean Corpuscular Hemoglobin 27.9 pg (28.0-33.3); Mean Corpuscular Volume 86.1 fL (83.0-100.0); Mean Platelet Volume 11.2 fL (9.4-12.4); Platelet Count 217 K/mcL (140-400); Red Blood Count 4.59 M/mcL (3.82-4.97); Red Cell Distribution Width 15.7 % (11.5-14.5); White Blood Count 12.4 K/mcL (4.3-11.1)
[2020-05-15 06:04] LABS: BUN/Creatinine Ratio 51 (6-26); Blood Urea Nitrogen 25 mg/dL (8-23); Calcium 9.1 mg/dL (8.6-10.3); Carbon Dioxide 29 mEq/L (23-29); Chloride 91 mEq/L (98-107); Glucose 141 mg/dL (70-105); Osmolality,Calculated 279 (280-300); Potassium 4.1 mEq/L (3.5-5.1); Sodium 131 mEq/L (136-145); eGFR For African Americans > 60 (> 60); eGFR For Non-African Americans > 60 (> 60)
[2020-05-15] MEDS: Fluconazole 100 MG TABLET PO SCH (09:14)
[2020-05-15] MEDS: Dexamethasone Sodium Phos/PF 10 MG/ML VIAL IVP SCH (09:14)
[2020-05-15] MEDS: Furosemide 40 MG TABLET PO SCH (09:14)
[2020-05-15] MEDS: Loratadine 10 MG TABLET PO SCH (09:14)
[2020-05-15] MEDS: *HR* Enoxaparin 40 MG/0.4 ML SYRINGE SQ SCH ×2 (09:14→20:46)
[2020-05-16] MEDS: Ipratropium 1 PUFF INHALER IH SCH ×6 (03:45→23:24)
[2020-05-16 06:40] LABS: Hematocrit 38.7 % (35.3-44.9); Hemoglobin 12.3 g/dL (11.5-15.4); Mean Corpuscular HGB Conc 31.8 g/dL (31.6-35.5); Mean Corpuscular Hemoglobin 27.5 pg (28.0-33.3); Mean Corpuscular Volume 86.6 fL (83.0-100.0); Mean Platelet Volume 11.7 fL (9.4-12.4); Platelet Count 219 K/mcL (140-400); Red Blood Count 4.47 M/mcL (3.82-4.97); Red Cell Distribution Width 15.8 % (11.5-14.5); White Blood Count 11.1 K/mcL (4.3-11.1)
[2020-05-16 07:00] LABS: BUN/Creatinine Ratio 49 (6-26); Blood Urea Nitrogen 25 mg/dL (8-23); Calcium 9.3 mg/dL (8.6-10.3); Carbon Dioxide 30 mEq/L (23-29); Chloride 95 mEq/L (98-107); Glucose 143 mg/dL (70-105); Osmolality,Calculated 287 (280-300); Potassium 4.3 mEq/L (3.5-5.1); Sodium 135 mEq/L (136-145); eGFR For African Americans > 60 (> 60); eGFR For Non-African Americans > 60 (> 60)
[2020-05-16] MEDS: Loratadine 10 MG TABLET PO SCH (07:36)
[2020-05-16] MEDS: Fluconazole 100 MG TABLET PO SCH (07:36)
[2020-05-16] MEDS: Furosemide 40 MG TABLET PO SCH (07:36)
[2020-05-16] MEDS: *HR* Enoxaparin 40 MG/0.4 ML SYRINGE SQ SCH ×2 (07:37→20:47)
[2020-05-16] MEDS: Dexamethasone Sodium Phos/PF 10 MG/ML VIAL IVP SCH (07:47)
[2020-05-16] MEDS ORDERED: *HR* LORazepam 2 MG/ML VIAL IVP ONE (10:02)
[2020-05-16] MEDS: Furosemide 40 MG/4 ML VIAL IVP SCH (20:46)
[2020-05-16] MEDS: ALPRAZolam 0.25 MG TABLET PO PRN (23:33)
[2020-05-17] MEDS: Ipratropium 1 PUFF INHALER IH SCH ×6 (03:45→23:25)
[2020-05-17] MEDS: Furosemide 40 MG/4 ML VIAL IVP SCH ×2 (09:09→20:37)
[2020-05-17] MEDS: Fluconazole 100 MG TABLET PO SCH (09:09)
[2020-05-17] MEDS: *HR* Enoxaparin 40 MG/0.4 ML SYRINGE SQ SCH ×2 (09:09→20:36)
[2020-05-17] MEDS: Dexamethasone Sodium Phos/PF 10 MG/ML VIAL IVP SCH (09:09)
[2020-05-17] MEDS: Loratadine 10 MG TABLET PO SCH (09:09)
[2020-05-17] MEDS: ALPRAZolam 0.25 MG TABLET PO PRN (10:19)
[2020-05-17 12:23] LABS: Hematocrit 41.7 % (35.3-44.9); Hemoglobin 13.3 g/dL (11.5-15.4); Mean Corpuscular HGB Conc 31.9 g/dL (31.6-35.5); Mean Corpuscular Hemoglobin 27.6 pg (28.0-33.3); Mean Corpuscular Volume 86.5 fL (83.0-100.0); Mean Platelet Volume 12.1 fL (9.4-12.4); Platelet Count 265 K/mcL (140-400); Red Blood Count 4.82 M/mcL (3.82-4.97)
[2020-05-17 12:52] LABS: White Blood Count 18.3 K/mcL (4.3-11.1)
[2020-05-17 15:55] LABS: BUN/Creatinine Ratio 49 (6-26); Blood Urea Nitrogen 29 mg/dL (8-23); Calcium 9.1 mg/dL (8.6-10.3); Carbon Dioxide 28 mEq/L (23-29); Chloride 93 mEq/L (98-107); Glucose 175 mg/dL (70-105); Magnesium 2.5 mg/dL (1.6-2.6); Osmolality,Calculated 286 (280-300); Potassium 4.3 mEq/L (3.5-5.1); Sodium 133 mEq/L (136-145); eGFR For African Americans > 60 (> 60); eGFR For Non-African Americans > 60 (> 60)
[2020-05-18 02:39] LABS: Hematocrit 40.6 % (35.3-44.9); Hemoglobin 13.1 g/dL (11.5-15.4); Mean Corpuscular HGB Conc 32.3 g/dL (31.6-35.5); Mean Corpuscular Hemoglobin 28.5 pg (28.0-33.3); Mean Corpuscular Volume 88.3 fL (83.0-100.0); Mean Platelet Volume 11.5 fL (9.4-12.4); Platelet Count 243 K/mcL (140-400); Red Cell Distribution Width 16.3 % (11.5-14.5); White Blood Count 12.6 K/mcL (4.3-11.1)
[2020-05-18 02:59] LABS: BUN/Creatinine Ratio 52 (6-26); Blood Urea Nitrogen 29 mg/dL (8-23); Calcium 9.1 mg/dL (8.6-10.3); Carbon Dioxide 24 mEq/L (23-29); Chloride 94 mEq/L (98-107); Glucose 149 mg/dL (70-105); Osmolality,Calculated 287 (280-300); Potassium 4.6 mEq/L (3.5-5.1); Sodium 134 mEq/L (136-145); eGFR For African Americans > 60 (> 60); eGFR For Non-African Americans > 60 (> 60)
[2020-05-18] MEDS: Ipratropium 1 PUFF INHALER IH SCH ×6 (03:39→23:45)
[2020-05-18] MEDS: Dexamethasone 4 MG/ML VIAL IVP SCH (08:25)
[2020-05-18] MEDS: Loratadine 10 MG TABLET PO SCH (08:25)
[2020-05-18] MEDS: Fluconazole 100 MG TABLET PO SCH (08:25)
[2020-05-18] MEDS: Furosemide 40 MG/4 ML VIAL IVP SCH (08:26)
[2020-05-18] MEDS: *HR* Enoxaparin 40 MG/0.4 ML SYRINGE SQ SCH ×2 (08:26→19:47)
[2020-05-18] MEDS: ALPRAZolam 0.25 MG TABLET PO PRN (11:19)
[2020-05-19 02:14] LABS: Hematocrit 40.8 % (35.3-44.9); Mean Corpuscular HGB Conc 31.9 g/dL (31.6-35.5); Mean Corpuscular Hemoglobin 27.2 pg (28.0-33.3); Mean Corpuscular Volume 85.4 fL (83.0-100.0); Mean Platelet Volume 11.6 fL (9.4-12.4); Platelet Count 220 K/mcL (140-400); Red Blood Count 4.78 M/mcL (3.82-4.97); Red Cell Distribution Width 15.9 % (11.5-14.5); White Blood Count 13.8 K/mcL (4.3-11.1)
[2020-05-19 02:34] LABS: BUN/Creatinine Ratio 53 (6-26); Blood Urea Nitrogen 27 mg/dL (8-23); Calcium 9.1 mg/dL (8.6-10.3); Carbon Dioxide 28 mEq/L (23-29); Chloride 92 mEq/L (98-107); Glucose 155 mg/dL (70-105); Osmolality,Calculated 282 (280-300); Potassium 4.1 mEq/L (3.5-5.1); Sodium 132 mEq/L (136-145); eGFR For African Americans > 60 (> 60); eGFR For Non-African Americans > 60 (> 60)
[2020-05-19] MEDS: Ipratropium 1 PUFF INHALER IH SCH ×6 (03:50→23:28)
[2020-05-19] MEDS: ALPRAZolam 0.25 MG TABLET PO PRN (08:16)
[2020-05-19] MEDS: Dexamethasone 4 MG/ML VIAL IVP SCH (08:16)
[2020-05-19] MEDS: Furosemide 20 MG TABLET PO SCH (08:16)
[2020-05-19] MEDS: Loratadine 10 MG TABLET PO SCH (08:16)
[2020-05-19] MEDS: *HR* Enoxaparin 40 MG/0.4 ML SYRINGE SQ SCH ×2 (08:16→20:23)
[2020-05-19] MEDS ORDERED: polyethylene glycoL 3350 17 GM POWD.PACK PO PRN (11:10)
[2020-05-20] MEDS: Ipratropium 1 PUFF INHALER IH SCH ×6 (03:34→23:53)
[2020-05-20 05:24] LABS: Basophils # 0.1 K/mcL (0.0-0.2); Basophils % 0.4 %; Eosinophils # 0.2 K/mcL (0.0-0.6); Eosinophils % 1.9 %; Hematocrit 39.9 % (35.3-44.9); Hemoglobin 12.9 g/dL (11.5-15.4); Immature Granulocytes % 3.7 % (0-4); Lymphocytes # 0.3 K/mcL (0.6-4.6); Lymphocytes % 2.9 %; Mean Corpuscular HGB Conc 32.3 g/dL (31.6-35.5); Mean Corpuscular Hemoglobin 27.9 pg (28.0-33.3); Mean Corpuscular Volume 86.4 fL (83.0-100.0); Mean Platelet Volume 11.5 fL (9.4-12.4); Monocytes # 0.4 K/mcL (0.0-1.3); Monocytes % 3.2 %; Neutrophils # 10.1 K/mcL (1.6-8.9); Platelet Count 188 K/mcL (140-400); Red Blood Count 4.62 M/mcL (3.82-4.97); Red Cell Distribution Width 16.1 % (11.5-14.5); Segmented Neutrophils % 87.9 %; White Blood Count 11.5 K/mcL (4.3-11.1)
[2020-05-20 05:25] LABS: Fibrinogen 347 mg/dL (169-393)
[2020-05-20 05:27] LABS: D-Dimer 1634 ng/mLFEU (0-500)
[2020-05-20 05:38] LABS: BUN/Creatinine Ratio 55 (6-26); Blood Urea Nitrogen 24 mg/dL (8-23); Calcium 8.8 mg/dL (8.6-10.3); Carbon Dioxide 27 mEq/L (23-29); Chloride 93 mEq/L (98-107); Glucose 135 mg/dL (70-105); Osmolality,Calculated 280 (280-300); Sodium 132 mEq/L (136-145); eGFR For African Americans > 60 (> 60); eGFR For Non-African Americans > 60 (> 60)
[2020-05-20] MEDS: Loratadine 10 MG TABLET PO SCH (08:29)
[2020-05-20] MEDS: ALPRAZolam 0.25 MG TABLET PO PRN ×2 (08:29→22:16)
[2020-05-20] MEDS: Dexamethasone 4 MG/ML VIAL IVP SCH (08:29)
[2020-05-20] MEDS: Sennosides 8.6 MG TABLET PO SCH (08:29)
[2020-05-20] MEDS: Furosemide 20 MG TABLET PO SCH (08:29)
[2020-05-20] MEDS: Benzonatate 100 MG CAPSULE PO PRN (08:29)
[2020-05-20] MEDS: *HR* Enoxaparin 40 MG/0.4 ML SYRINGE SQ SCH ×2 (08:29→20:21)
[2020-05-21] MEDS: Ipratropium 1 PUFF INHALER IH SCH ×5 (03:45→20:05)
[2020-05-21] MEDS: Dexamethasone 4 MG/ML VIAL IVP SCH (10:01)
[2020-05-21] MEDS: Furosemide 20 MG TABLET PO SCH (10:01)
[2020-05-21] MEDS: Sennosides 8.6 MG TABLET PO SCH (10:01)
[2020-05-21] MEDS: Loratadine 10 MG TABLET PO SCH (10:01)
[2020-05-21] MEDS: *HR* Enoxaparin 40 MG/0.4 ML SYRINGE SQ SCH ×2 (10:01→20:54)
[2020-05-21] MEDS: ALPRAZolam 0.25 MG TABLET PO PRN ×2 (10:30→20:54)
[2020-05-21] MEDS: Benzonatate 100 MG CAPSULE PO PRN (20:53)
[2020-05-22] MEDS: Ipratropium 1 PUFF INHALER IH SCH ×6 (00:32→20:03)
[2020-05-22] MEDS: Benzonatate 100 MG CAPSULE PO PRN (05:17)
[2020-05-22] MEDS: Loratadine 10 MG TABLET PO SCH (08:02)
[2020-05-22] MEDS: dexAMETHasone 4 MG TABLET PO SCH (08:02)
[2020-05-22] MEDS: Sennosides 8.6 MG TABLET PO SCH (08:03)
[2020-05-22] MEDS: *HR* Enoxaparin 40 MG/0.4 ML SYRINGE SQ SCH ×2 (08:03→20:05)
[2020-05-22] MEDS: Furosemide 20 MG TABLET PO SCH (08:03)
[2020-05-22] MEDS: ALPRAZolam 0.25 MG TABLET PO PRN (16:13)
[2020-05-23] MEDS: Ipratropium 1 PUFF INHALER IH SCH ×7 (00:09→23:08)
[2020-05-23] MEDS: Melatonin 3 MG TABLET PO PRN ×2 (00:28→21:43)
[2020-05-23] MEDS: ALPRAZolam 0.25 MG TABLET PO PRN (05:51)
[2020-05-23] MEDS: dexAMETHasone 4 MG TABLET PO SCH (08:49)
[2020-05-23] MEDS: *HR* Enoxaparin 40 MG/0.4 ML SYRINGE SQ SCH ×2 (08:51→21:43)
[2020-05-23] MEDS: Sennosides 8.6 MG TABLET PO SCH (08:51)
[2020-05-23] MEDS: Loratadine 10 MG TABLET PO SCH (08:51)
[2020-05-23] MEDS: Furosemide 20 MG TABLET PO SCH (08:51)
[2020-05-24] MEDS: Ipratropium 1 PUFF INHALER IH SCH ×6 (03:30→23:50)
[2020-05-24] MEDS: ALPRAZolam 0.25 MG TABLET PO PRN (03:37)
[2020-05-24 05:15] LABS: Fibrinogen 489 mg/dL (169-393)
[2020-05-24 05:18] LABS: Blood Urea Nitrogen 15 mg/dL (8-23); Carbon Dioxide 25 mEq/L (23-29); Chloride 95 mEq/L (98-107); Potassium 3.7 mEq/L (3.5-5.1); Sodium 132 mEq/L (136-145)
[2020-05-24 05:19] LABS: BUN/Creatinine Ratio 33 (6-26); Calcium 8.3 mg/dL (8.6-10.3); D-Dimer 1392 ng/mLFEU (0-500); Glucose 181 mg/dL (70-105); Osmolality,Calculated 279 (280-300); eGFR For African Americans > 60 (> 60); eGFR For Non-African Americans > 60 (> 60)
[2020-05-24 05:21] LABS: Basophils % 0.5 %; Eosinophils # 0.2 K/mcL (0.0-0.6); Eosinophils % 3.8 %; Hematocrit 33.9 % (35.3-44.9); Lymphocytes # 0.4 K/mcL (0.6-4.6); Lymphocytes % 7.6 %; Mean Corpuscular HGB Conc 31.3 g/dL (31.6-35.5); Mean Corpuscular Hemoglobin 27.7 pg (28.0-33.3); Mean Corpuscular Volume 88.7 fL (83.0-100.0); Mean Platelet Volume 11.5 fL (9.4-12.4); Monocytes # 0.2 K/mcL (0.0-1.3); Monocytes % 2.7 %; Nucleated Red Blood Cells 0.4 /100 WBC (0); Platelet Count 113 K/mcL (140-400); Red Blood Count 3.82 M/mcL (3.82-4.97); Red Cell Distribution Width 17.2 % (11.5-14.5); Segmented Neutrophils % 81.4 %
[2020-05-24 05:24] LABS: Hemoglobin 10.6 g/dL (11.5-15.4); Neutrophils # 4.6 K/mcL (1.6-8.9); White Blood Count 5.6 K/mcL (4.3-11.1)
[2020-05-24] MEDS: *HR* Enoxaparin 40 MG/0.4 ML SYRINGE SQ SCH (09:12)
[2020-05-24] MEDS: dexAMETHasone 4 MG TABLET PO SCH (09:12)
[2020-05-24] MEDS: Sennosides 8.6 MG TABLET PO SCH (09:12)
[2020-05-24] MEDS: Loratadine 10 MG TABLET PO SCH (09:13)
[2020-05-24] MEDS: Furosemide 20 MG TABLET PO SCH (09:13)
[2020-05-25] MEDS: Ipratropium 1 PUFF INHALER IH SCH ×6 (03:43→23:45)
[2020-05-25] MEDS: ALPRAZolam 0.25 MG TABLET PO PRN (05:37)
[2020-05-25 05:53] LABS: BUN/Creatinine Ratio 32 (6-26); Blood Urea Nitrogen 12 mg/dL (8-23); Calcium 8.5 mg/dL (8.6-10.3); Carbon Dioxide 28 mEq/L (23-29); Chloride 97 mEq/L (98-107); Glucose 102 mg/dL (70-105); Osmolality,Calculated 276 (280-300); Potassium 3.8 mEq/L (3.5-5.1); Sodium 133 mEq/L (136-145); eGFR For African Americans > 60 (> 60); eGFR For Non-African Americans > 60 (> 60)
[2020-05-25] MEDS: Loratadine 10 MG TABLET PO SCH (07:56)
[2020-05-25] MEDS: dexAMETHasone 4 MG TABLET PO SCH (07:56)
[2020-05-25] MEDS: Furosemide 20 MG TABLET PO SCH (07:56)
[2020-05-25] MEDS: Sennosides 8.6 MG TABLET PO SCH (07:56)
[2020-05-25] MEDS: *HR* Enoxaparin 40 MG/0.4 ML SYRINGE SQ SCH (07:58)
[2020-05-25 11:11] LABS: Lymphocytes % 8.2 %
[2020-05-25 11:13] LABS: Basophils % 0.4 %; Eosinophils # 0.2 K/mcL (0.0-0.6); Hematocrit 32.1 % (35.3-44.9); Immature Granulocytes % 3.9 % (0-4); Immature Platelets 5.6 % (1.1-6.1); Lymphocytes # 0.5 K/mcL (0.6-4.6); Mean Corpuscular HGB Conc 31.2 g/dL (31.6-35.5); Mean Corpuscular Hemoglobin 27.2 pg (28.0-33.3); Mean Corpuscular Volume 87.5 fL (83.0-100.0); Mean Platelet Volume 10.5 fL (9.4-12.4); Monocytes # 0.2 K/mcL (0.0-1.3); Monocytes % 3.8 %; Neutrophils # 4.5 K/mcL (1.6-8.9); Platelet Count 101 K/mcL (140-400); Red Blood Count 3.67 M/mcL (3.82-4.97); Red Cell Distribution Width 17.2 % (11.5-14.5); Segmented Neutrophils % 80.7 %; White Blood Count 5.6 K/mcL (4.3-11.1)
[2020-05-25] MEDS ORDERED: 0.9 % Sodium Chloride 250 ML IVC ONE (15:55)
[2020-05-26] MEDS: ALPRAZolam 0.25 MG TABLET PO PRN ×3 (00:47→20:17)
[2020-05-26] MEDS: Ipratropium 1 PUFF INHALER IH SCH ×6 (03:46→23:22)
[2020-05-26 06:23] LABS: Basophils % 0.8 %; Eosinophils # 0.2 K/mcL (0.0-0.6); Eosinophils % 5.2 %; Hematocrit 33.2 % (35.3-44.9); Hemoglobin 10.1 g/dL (11.5-15.4); Immature Granulocytes % 4.5 % (0-4); Lymphocytes # 0.5 K/mcL (0.6-4.6); Mean Corpuscular HGB Conc 30.4 g/dL (31.6-35.5); Mean Corpuscular Volume 88.8 fL (83.0-100.0); Mean Platelet Volume 10.8 fL (9.4-12.4); Monocytes # 0.2 K/mcL (0.0-1.3); Monocytes % 3.9 %; Neutrophils # 2.8 K/mcL (1.6-8.9); Platelet Count 104 K/mcL (140-400); Red Blood Count 3.74 M/mcL (3.82-4.97); Red Cell Distribution Width 17.2 % (11.5-14.5); Segmented Neutrophils % 73.6 %; White Blood Count 3.8 K/mcL (4.3-11.1)
[2020-05-26 06:40] LABS: BUN/Creatinine Ratio 42 (6-26); Blood Urea Nitrogen 13 mg/dL (8-23); Calcium 8.5 mg/dL (8.6-10.3); Carbon Dioxide 29 mEq/L (23-29); Chloride 99 mEq/L (98-107); Glucose 87 mg/dL (70-105); Osmolality,Calculated 283 (280-300); Potassium 3.4 mEq/L (3.5-5.1); Sodium 137 mEq/L (136-145); eGFR For African Americans > 60 (> 60); eGFR For Non-African Americans > 60 (> 60)
[2020-05-26] MEDS: *HR* Enoxaparin 40 MG/0.4 ML SYRINGE SQ SCH (11:19)
[2020-05-26] MEDS: dexAMETHasone 4 MG TABLET PO SCH (11:19)
[2020-05-26] MEDS: Loratadine 10 MG TABLET PO SCH (11:19)
[2020-05-26] MEDS: Furosemide 20 MG TABLET PO SCH (11:19)
[2020-05-26] MEDS: Sennosides 8.6 MG TABLET PO SCH (11:19)
[2020-05-26] MEDS: Potassium Chloride Elixir 20 MEQ/15 ML UDC PO SCH ×2 (16:00→19:01)
[2020-05-27] MEDS: Ipratropium 1 PUFF INHALER IH SCH ×6 (03:40→23:57)
[2020-05-27 06:17] LABS: INR 1.1; Prothrombin Time 12.5 Seconds (9.4-12.1)
[2020-05-27 06:18] LABS: Basophils % 0.6 %; Eosinophils # 0.1 K/mcL (0.0-0.6); Eosinophils % 4.2 %; Hematocrit 32.1 % (35.3-44.9); Hemoglobin 10.1 g/dL (11.5-15.4); Immature Granulocytes % 4.8 % (0-4); Lymphocytes # 0.6 K/mcL (0.6-4.6); Lymphocytes % 18.2 %; Mean Corpuscular HGB Conc 31.5 g/dL (31.6-35.5); Mean Corpuscular Hemoglobin 27.4 pg (28.0-33.3); Mean Platelet Volume 10.9 fL (9.4-12.4); Monocytes # 0.2 K/mcL (0.0-1.3); Monocytes % 4.8 %; Neutrophils # 2.3 K/mcL (1.6-8.9); Platelet Count 107 K/mcL (140-400); Red Blood Count 3.69 M/mcL (3.82-4.97); Red Cell Distribution Width 17.2 % (11.5-14.5); Segmented Neutrophils % 67.4 %; White Blood Count 3.4 K/mcL (4.3-11.1)
[2020-05-27 06:29] LABS: Alanine Aminotransferase 38 Units/L (7-52); Albumin 3.1 g/dL (3.5-5.7); Albumin/Globulin Ratio 1.3 (1.1-2.2); Alkaline Phosphatase 54 Units/L (34-104); Aspartate Amino Transferase 29 Units/L (13-39); BUN/Creatinine Ratio 36 (6-26); Bilirubin,Total 0.6 mg/dL (0.3-1.0); Blood Urea Nitrogen 12 mg/dL (8-23); Calcium 8.5 mg/dL (8.6-10.3); Carbon Dioxide 28 mEq/L (23-29); Chloride 105 mEq/L (98-107); Globulin 2.4 g/dL (2.4-3.5); Glucose 129 mg/dL (70-105); Magnesium 2.1 mg/dL (1.6-2.6); Osmolality,Calculated 289 (280-300); Phosphorous 2.6 mg/dL (2.7-4.5); Potassium 3.8 mEq/L (3.5-5.1); Sodium 139 mEq/L (136-145); Total Protein 5.5 g/dL (6.4-8.9); eGFR For African Americans > 60 (> 60); eGFR For Non-African Americans > 60 (> 60)
[2020-05-27] MEDS: Loratadine 10 MG TABLET PO SCH (08:47)
[2020-05-27] MEDS: *HR* Enoxaparin 40 MG/0.4 ML SYRINGE SQ SCH (08:47)
[2020-05-27] MEDS: dexAMETHasone 4 MG TABLET PO SCH (08:47)
[2020-05-27] MEDS: Sennosides 8.6 MG TABLET PO SCH (08:47)
[2020-05-27] MEDS: ALPRAZolam 0.25 MG TABLET PO PRN ×2 (08:48→21:04)
[2020-05-27] MEDS ORDERED: Furosemide 40 MG/4 ML VIAL IVP ONE (13:54)
[2020-05-27] MEDS: Dexamethasone Sodium Phos/PF 10 MG/ML VIAL IVP SCH (14:54)
[2020-05-27] MEDS: Melatonin 3 MG TABLET PO PRN (21:04)
[2020-05-28] MEDS: Ipratropium 1 PUFF INHALER IH SCH ×6 (03:51→22:49)
[2020-05-28 08:34] LABS: Basophils % 0.5 %; Hematocrit 32.3 % (35.3-44.9); Hemoglobin 9.9 g/dL (11.5-15.4); Immature Granulocytes % 2.4 % (0-4); Lymphocytes # 0.9 K/mcL (0.6-4.6); Lymphocytes % 22.5 %; Mean Corpuscular HGB Conc 30.7 g/dL (31.6-35.5); Mean Corpuscular Hemoglobin 26.9 pg (28.0-33.3); Mean Corpuscular Volume 87.8 fL (83.0-100.0); Mean Platelet Volume 10.6 fL (9.4-12.4); Monocytes # 0.3 K/mcL (0.0-1.3); Monocytes % 6.5 %; Neutrophils # 2.6 K/mcL (1.6-8.9); Nucleated Red Blood Cells 0.5 /100 WBC (0); Platelet Count 124 K/mcL (140-400); Red Blood Count 3.68 M/mcL (3.82-4.97); Red Cell Distribution Width 17.3 % (11.5-14.5); Segmented Neutrophils % 68.1 %; White Blood Count 3.8 K/mcL (4.3-11.1)
[2020-05-28 08:43] LABS: INR 1.1; Prothrombin Time 12.9 Seconds (9.4-12.1)
[2020-05-28 08:53] LABS: Alanine Aminotransferase 35 Units/L (7-52); Albumin 3.3 g/dL (3.5-5.7); Albumin/Globulin Ratio 1.3 (1.1-2.2); Alkaline Phosphatase 52 Units/L (34-104); Aspartate Amino Transferase 24 Units/L (13-39); BUN/Creatinine Ratio 49 (6-26); Bilirubin,Total 0.6 mg/dL (0.3-1.0); Blood Urea Nitrogen 19 mg/dL (8-23); Calcium 8.8 mg/dL (8.6-10.3); Carbon Dioxide 28 mEq/L (23-29); Chloride 103 mEq/L (98-107); Globulin 2.5 g/dL (2.4-3.5); Glucose 155 mg/dL (70-105); Magnesium 2.3 mg/dL (1.6-2.6); Osmolality,Calculated 291 (280-300); Phosphorous 3.9 mg/dL (2.7-4.5); Potassium 4.1 mEq/L (3.5-5.1); Sodium 138 mEq/L (136-145); Total Protein 5.8 g/dL (6.4-8.9); eGFR For African Americans > 60 (> 60); eGFR For Non-African Americans > 60 (> 60)
[2020-05-28] MEDS: Loratadine 10 MG TABLET PO SCH (09:08)
[2020-05-28] MEDS: *HR* Enoxaparin 40 MG/0.4 ML SYRINGE SQ SCH (09:08)
[2020-05-28] MEDS: Dexamethasone Sodium Phos/PF 10 MG/ML VIAL IVP SCH (09:08)
[2020-05-28] MEDS: Sennosides 8.6 MG TABLET PO SCH (09:23)
[2020-05-28] MEDS: ALPRAZolam 0.25 MG TABLET PO PRN ×2 (09:26→21:49)
[2020-05-28 09:45] LABS: Platelet Estimate Slight Decrease (Normal)
[2020-05-28] MEDS: Furosemide 20 MG TABLET PO SCH (16:45)
[2020-05-28] MEDS: Benzonatate 100 MG CAPSULE PO PRN (17:59)
[2020-05-28] MEDS: Melatonin 3 MG TABLET PO PRN (21:23)
[2020-05-29 03:05] LABS: Basophils % 0.7 %; Hemoglobin 9.9 g/dL (11.5-15.4); Immature Granulocytes % 4.1 % (0-4); Lymphocytes # 0.8 K/mcL (0.6-4.6); Lymphocytes % 19.2 %; Mean Corpuscular HGB Conc 30.9 g/dL (31.6-35.5); Mean Corpuscular Hemoglobin 27.5 pg (28.0-33.3); Mean Corpuscular Volume 88.9 fL (83.0-100.0); Mean Platelet Volume 10.8 fL (9.4-12.4); Monocytes # 0.4 K/mcL (0.0-1.3); Monocytes % 9.1 %; Neutrophils # 2.8 K/mcL (1.6-8.9); Nucleated Red Blood Cells 0.7 /100 WBC (0); Platelet Count 134 K/mcL (140-400); Red Cell Distribution Width 17.4 % (11.5-14.5); Segmented Neutrophils % 66.9 %; White Blood Count 4.2 K/mcL (4.3-11.1)
[2020-05-29 03:11] LABS: INR 1.1; Prothrombin Time 12.3 Seconds (9.4-12.1)
[2020-05-29 03:20] LABS: Alanine Aminotransferase 36 Units/L (7-52); Albumin 3.2 g/dL (3.5-5.7); Albumin/Globulin Ratio 1.3 (1.1-2.2); Alkaline Phosphatase 48 Units/L (34-104); Aspartate Amino Transferase 20 Units/L (13-39); BUN/Creatinine Ratio 61 (6-26); Bilirubin,Total 0.4 mg/dL (0.3-1.0); Blood Urea Nitrogen 25 mg/dL (8-23); Calcium 8.6 mg/dL (8.6-10.3); Carbon Dioxide 26 mEq/L (23-29); Chloride 103 mEq/L (98-107); Globulin 2.4 g/dL (2.4-3.5); Glucose 147 mg/dL (70-105); Magnesium 2.4 mg/dL (1.6-2.6); Osmolality,Calculated 293 (280-300); Phosphorous 3.4 mg/dL (2.7-4.5); Potassium 4.1 mEq/L (3.5-5.1); Sodium 138 mEq/L (136-145); Total Protein 5.6 g/dL (6.4-8.9); eGFR For African Americans > 60 (> 60); eGFR For Non-African Americans > 60 (> 60)
[2020-05-29] MEDS: Ipratropium 1 PUFF INHALER IH SCH ×6 (03:30→23:51)
[2020-05-29] MEDS: Benzonatate 100 MG CAPSULE PO PRN ×2 (05:37→13:08)
[2020-05-29] MEDS: Dexamethasone Sodium Phos/PF 10 MG/ML VIAL IVP SCH (09:44)
[2020-05-29] MEDS: Sennosides 8.6 MG TABLET PO SCH (09:44)
[2020-05-29] MEDS: Loratadine 10 MG TABLET PO SCH (09:44)
[2020-05-29] MEDS: Furosemide 20 MG TABLET PO SCH (09:44)
[2020-05-29] MEDS: *HR* Enoxaparin 40 MG/0.4 ML SYRINGE SQ SCH (09:44)
[2020-05-29] MEDS: ALPRAZolam 0.25 MG TABLET PO PRN (10:24)
[2020-05-29] MEDS: Melatonin 3 MG TABLET PO PRN (22:58)
[2020-05-30] MEDS: Ipratropium 1 PUFF INHALER IH SCH ×5 (03:45→20:06)
[2020-05-30 09:09] LABS: Hemoglobin 10.1 g/dL (11.5-15.4); Mean Corpuscular HGB Conc 30.6 g/dL (31.6-35.5); Mean Corpuscular Hemoglobin 27.9 pg (28.0-33.3); Mean Corpuscular Volume 91.2 fL (83.0-100.0); Mean Platelet Volume 10.6 fL (9.4-12.4); Nucleated Red Blood Cells 1.4 /100 WBC (0); Platelet Count 127 K/mcL (140-400); Red Blood Count 3.62 M/mcL (3.82-4.97); Red Cell Distribution Width 17.6 % (11.5-14.5); White Blood Count 2.8 K/mcL (4.3-11.1)
[2020-05-30 09:17] LABS: INR 1.1; Prothrombin Time 12.4 Seconds (9.4-12.1)
[2020-05-30 09:29] LABS: Alanine Aminotransferase 34 Units/L (7-52); Albumin 3.3 g/dL (3.5-5.7); Albumin/Globulin Ratio 1.4 (1.1-2.2); Alkaline Phosphatase 49 Units/L (34-104); Aspartate Amino Transferase 19 Units/L (13-39); BUN/Creatinine Ratio 57 (6-26); Bilirubin,Total 0.6 mg/dL (0.3-1.0); Blood Urea Nitrogen 27 mg/dL (8-23); Calcium 8.7 mg/dL (8.6-10.3); Carbon Dioxide 31 mEq/L (23-29); Chloride 105 mEq/L (98-107); Globulin 2.3 g/dL (2.4-3.5); Glucose 121 mg/dL (70-105); Magnesium 2.3 mg/dL (1.6-2.6); Osmolality,Calculated 300 (280-300); Phosphorous 4.1 mg/dL (2.7-4.5); Potassium 4.1 mEq/L (3.5-5.1); Sodium 142 mEq/L (136-145); Total Protein 5.6 g/dL (6.4-8.9); eGFR For African Americans > 60 (> 60); eGFR For Non-African Americans > 60 (> 60)
[2020-05-30 09:47] LABS: Lymphocytes # 0.7 K/mcL (0.6-4.6); Monocytes # 0.1 K/mcL (0.0-1.3); Reactive Lymphocytes Present (Not Present)
[2020-05-30 09:48] LABS: Anisocytosis 1+ (Not Present); Platelet Estimate Normal (Normal); Polychromasia 1+ (Not Present)
[2020-05-30] MEDS: *HR* Enoxaparin 40 MG/0.4 ML SYRINGE SQ SCH (09:58)
[2020-05-30] MEDS: Furosemide 20 MG TABLET PO SCH (09:59)
[2020-05-30] MEDS: Loratadine 10 MG TABLET PO SCH (09:59)
[2020-05-30] MEDS: Benzonatate 100 MG CAPSULE PO PRN (09:59)
[2020-05-30] MEDS: ALPRAZolam 0.25 MG TABLET PO PRN (10:00)
[2020-05-30] MEDS: Dexamethasone Sodium Phos/PF 10 MG/ML VIAL IVP SCH (10:00)
[2020-05-30] MEDS ORDERED: *HR* LORazepam 2 MG/ML VIAL IVP ONE (15:37)
[2020-05-30] MEDS: Ipratropium 1 PUFF INHALER IH PRN (16:13)
[2020-05-30] MEDS: Melatonin 3 MG TABLET PO PRN (20:36)
[2020-05-31] MEDS: Ipratropium 1 PUFF INHALER IH SCH ×7 (00:02→23:55)
[2020-05-31 07:00] LABS: Prothrombin Time 12.1 Seconds (9.4-12.1)
[2020-05-31 07:01] LABS: Hematocrit 31.8 % (35.3-44.9); Hemoglobin 9.9 g/dL (11.5-15.4); Mean Corpuscular HGB Conc 31.1 g/dL (31.6-35.5); Mean Corpuscular Hemoglobin 27.9 pg (28.0-33.3); Mean Corpuscular Volume 89.6 fL (83.0-100.0); Mean Platelet Volume 10.6 fL (9.4-12.4); Monocytes # 0.2 K/mcL (0.0-1.3); Nucleated Red Blood Cells 2.3 /100 WBC (0); Platelet Count 125 K/mcL (140-400); Red Blood Count 3.55 M/mcL (3.82-4.97); Red Cell Distribution Width 17.5 % (11.5-14.5); White Blood Count 2.6 K/mcL (4.3-11.1)
[2020-05-31 07:09] LABS: Alanine Aminotransferase 33 Units/L (7-52); Albumin 3.2 g/dL (3.5-5.7); Albumin/Globulin Ratio 1.5 (1.1-2.2); Alkaline Phosphatase 49 Units/L (34-104); Aspartate Amino Transferase 19 Units/L (13-39); BUN/Creatinine Ratio 55 (6-26); Bilirubin,Total 0.6 mg/dL (0.3-1.0); Blood Urea Nitrogen 24 mg/dL (8-23); Calcium 8.5 mg/dL (8.6-10.3); Carbon Dioxide 31 mEq/L (23-29); Chloride 105 mEq/L (98-107); Globulin 2.1 g/dL (2.4-3.5); Glucose 131 mg/dL (70-105); Magnesium 2.3 mg/dL (1.6-2.6); Osmolality,Calculated 298 (280-300); Phosphorous 3.7 mg/dL (2.7-4.5); Potassium 3.8 mEq/L (3.5-5.1); Sodium 141 mEq/L (136-145); Total Protein 5.3 g/dL (6.4-8.9); eGFR For African Americans > 60 (> 60); eGFR For Non-African Americans > 60 (> 60)
[2020-05-31 08:46] LABS: Lymphocytes # 0.6 K/mcL (0.6-4.6); Neutrophils # 1.8 K/mcL (1.6-8.9)
[2020-05-31 08:47] LABS: Anisocytosis 1+ (Not Present); Platelet Estimate Slight Decrease (Normal); Reactive Lymphocytes Present (Not Present)
[2020-05-31] MEDS: Sennosides 8.6 MG TABLET PO SCH (09:55)
[2020-05-31] MEDS: Furosemide 20 MG TABLET PO SCH (09:55)
[2020-05-31] MEDS: Loratadine 10 MG TABLET PO SCH (09:55)
[2020-05-31] MEDS: Dexamethasone Sodium Phos/PF 10 MG/ML VIAL IVP SCH (09:56)
[2020-05-31] MEDS: *HR* Enoxaparin 40 MG/0.4 ML SYRINGE SQ SCH (09:56)
[2020-05-31] MEDS: Melatonin 3 MG TABLET PO PRN (21:13)
[2020-06-01] MEDS: Ipratropium 1 PUFF INHALER IH SCH ×6 (03:22→23:28)
[2020-06-01 05:31] LABS: Hematocrit 32.3 % (35.3-44.9); Hemoglobin 9.9 g/dL (11.5-15.4); Mean Corpuscular HGB Conc 30.7 g/dL (31.6-35.5); Mean Corpuscular Volume 88.3 fL (83.0-100.0); Mean Platelet Volume 10.4 fL (9.4-12.4); Nucleated Red Blood Cells 1.5 /100 WBC (0); Platelet Count 121 K/mcL (140-400); Red Blood Count 3.66 M/mcL (3.82-4.97); Red Cell Distribution Width 17.7 % (11.5-14.5); White Blood Count 3.2 K/mcL (4.3-11.1)
[2020-06-01 05:38] LABS: Prothrombin Time 11.9 Seconds (9.4-12.1)
[2020-06-01 05:54] LABS: Alanine Aminotransferase 32 Units/L (7-52); Albumin 3.2 g/dL (3.5-5.7); Albumin/Globulin Ratio 1.5 (1.1-2.2); Alkaline Phosphatase 52 Units/L (34-104); Aspartate Amino Transferase 21 Units/L (13-39); BUN/Creatinine Ratio 64 (6-26); Bilirubin,Total 0.6 mg/dL (0.3-1.0); Blood Urea Nitrogen 25 mg/dL (8-23); Calcium 8.5 mg/dL (8.6-10.3); Carbon Dioxide 28 mEq/L (23-29); Chloride 107 mEq/L (98-107); Globulin 2.1 g/dL (2.4-3.5); Glucose 138 mg/dL (70-105); Magnesium 2.3 mg/dL (1.6-2.6); Osmolality,Calculated 301 (280-300); Phosphorous 3.4 mg/dL (2.7-4.5); Potassium 3.8 mEq/L (3.5-5.1); Sodium 142 mEq/L (136-145); Total Protein 5.3 g/dL (6.4-8.9); eGFR For African Americans > 60 (> 60); eGFR For Non-African Americans > 60 (> 60)
[2020-06-01 07:01] LABS: Anisocytosis 1+ (Not Present); Monocytes # 0.1 K/mcL (0.0-1.3); Neutrophils # 1.9 K/mcL (1.6-8.9); Platelet Estimate Slight Decrease (Normal); Polychromasia 1+ (Not Present)
[2020-06-01] MEDS: *HR* Enoxaparin 40 MG/0.4 ML SYRINGE SQ SCH (10:39)
[2020-06-01] MEDS: Furosemide 20 MG TABLET PO SCH (10:40)
[2020-06-01] MEDS: Loratadine 10 MG TABLET PO SCH (10:40)
[2020-06-01] MEDS: Dexamethasone Sodium Phos/PF 10 MG/ML VIAL IVP SCH (10:40)
[2020-06-01] MEDS: ALPRAZolam 0.25 MG TABLET PO PRN ×2 (11:10→23:34)
[2020-06-02] MEDS: Ipratropium 1 PUFF INHALER IH SCH ×5 (03:39→20:22)
[2020-06-02] MEDS: Sennosides 8.6 MG TABLET PO SCH (09:06)
[2020-06-02] MEDS: ALPRAZolam 0.25 MG TABLET PO PRN ×3 (09:06→23:00)
[2020-06-02] MEDS: Loratadine 10 MG TABLET PO SCH (09:07)
[2020-06-02] MEDS: *HR* Enoxaparin 40 MG/0.4 ML SYRINGE SQ SCH (09:07)
[2020-06-02] MEDS: Dexamethasone Sodium Phos/PF 10 MG/ML VIAL IVP SCH (09:07)
[2020-06-02] MEDS: Furosemide 20 MG TABLET PO SCH (09:07)
[2020-06-02] MEDS: Melatonin 3 MG TABLET PO PRN (23:01)
[2020-06-03] MEDS: Ipratropium 1 PUFF INHALER IH SCH ×7 (00:15→23:36)
[2020-06-03 02:51] LABS: Hematocrit 33.3 % (35.3-44.9); Hemoglobin 10.1 g/dL (11.5-15.4); Mean Corpuscular HGB Conc 30.3 g/dL (31.6-35.5); Mean Corpuscular Hemoglobin 26.9 pg (28.0-33.3); Mean Corpuscular Volume 88.6 fL (83.0-100.0); Mean Platelet Volume 10.5 fL (9.4-12.4); Monocytes # 0.2 K/mcL (0.0-1.3); Nucleated Red Blood Cells 0.8 /100 WBC (0); Platelet Count 111 K/mcL (140-400); Red Blood Count 3.76 M/mcL (3.82-4.97); Red Cell Distribution Width 18.4 % (11.5-14.5); White Blood Count 3.7 K/mcL (4.3-11.1)
[2020-06-03 03:02] LABS: BUN/Creatinine Ratio 61 (6-26); Blood Urea Nitrogen 23 mg/dL (8-23); Calcium 8.4 mg/dL (8.6-10.3); Carbon Dioxide 28 mEq/L (23-29); Chloride 108 mEq/L (98-107); Glucose 141 mg/dL (70-105); Osmolality,Calculated 298 (280-300); Potassium 3.9 mEq/L (3.5-5.1); Sodium 141 mEq/L (136-145); eGFR For African Americans > 60 (> 60); eGFR For Non-African Americans > 60 (> 60)
[2020-06-03 04:02] LABS: Anisocytosis 1+ (Not Present); Lymphocytes # 1.1 K/mcL (0.6-4.6); Macrocytosis Present (Not Present); Neutrophils # 2.3 K/mcL (1.6-8.9); Polychromasia 1+ (Not Present); Reactive Lymphocytes Present (Not Present)
[2020-06-03 04:03] LABS: Platelet Estimate Slight Decrease (Normal)
[2020-06-03] MEDS: Ondansetron ODT 4 MG TAB.RAPDIS SL PRN (05:19)
[2020-06-03] MEDS: Loratadine 10 MG TABLET PO SCH (08:27)
[2020-06-03] MEDS: *HR* Enoxaparin 40 MG/0.4 ML SYRINGE SQ SCH (08:28)
[2020-06-03] MEDS: Furosemide 20 MG TABLET PO SCH (08:28)
[2020-06-03] MEDS: Dexamethasone Sodium Phos/PF 10 MG/ML VIAL IVP SCH (08:28)
[2020-06-03] MEDS: ALPRAZolam 0.25 MG TABLET PO PRN ×2 (09:05→16:50)
[2020-06-03] MEDS: Melatonin 3 MG TABLET PO PRN (19:58)
[2020-06-03] MEDS: Benzonatate 100 MG CAPSULE PO PRN (19:59)
[2020-06-04] MEDS: ALPRAZolam 0.25 MG TABLET PO PRN ×3 (00:18→14:40)
[2020-06-04] MEDS: Ipratropium 1 PUFF INHALER IH SCH ×5 (03:56→19:47)
[2020-06-04 06:44] LABS: Eosinophils # 0.1 K/mcL (0.0-0.6); Hematocrit 33.7 % (35.3-44.9); Mean Corpuscular HGB Conc 29.7 g/dL (31.6-35.5); Mean Corpuscular Hemoglobin 26.7 pg (28.0-33.3); Mean Corpuscular Volume 90.1 fL (83.0-100.0); Mean Platelet Volume 10.4 fL (9.4-12.4); Nucleated Red Blood Cells 0.8 /100 WBC (0); Platelet Count 118 K/mcL (140-400); Red Blood Count 3.74 M/mcL (3.82-4.97); Red Cell Distribution Width 18.8 % (11.5-14.5); White Blood Count 3.6 K/mcL (4.3-11.1)
[2020-06-04 06:58] LABS: BUN/Creatinine Ratio 59 (6-26); Blood Urea Nitrogen 22 mg/dL (8-23); Calcium 8.4 mg/dL (8.6-10.3); Carbon Dioxide 30 mEq/L (23-29); Chloride 109 mEq/L (98-107); Glucose 117 mg/dL (70-105); Osmolality,Calculated 302 (280-300); Potassium 3.9 mEq/L (3.5-5.1); Sodium 144 mEq/L (136-145); eGFR For African Americans > 60 (> 60); eGFR For Non-African Americans > 60 (> 60)
[2020-06-04 08:05] LABS: Anisocytosis 1+ (Not Present); Lymphocytes # 1.3 K/mcL (0.6-4.6); Monocytes # 0.3 K/mcL (0.0-1.3); Neutrophils # 1.9 K/mcL (1.6-8.9); Platelet Estimate Decreased (Normal); Reactive Lymphocytes Present (Not Present)
[2020-06-04 08:06] LABS: Polychromasia 1+ (Not Present)
[2020-06-04] MEDS: *HR* Enoxaparin 40 MG/0.4 ML SYRINGE SQ SCH (08:44)
[2020-06-04] MEDS: Sennosides 8.6 MG TABLET PO SCH (08:44)
[2020-06-04] MEDS: Dexamethasone Sodium Phos/PF 10 MG/ML VIAL IVP SCH (08:44)
[2020-06-04] MEDS: Loratadine 10 MG TABLET PO SCH (08:45)
[2020-06-04] MEDS: Furosemide 20 MG TABLET PO SCH (08:45)
[2020-06-04 11:59] LABS: Bilirubin,Urine Negative (Negative); Blood,Urine Large (Negative); Budding Yeast,Urine Few per hpf (None Seen); Calcium Oxalate Crystals,Urine Present; Clarity,Urine Turbid (Clear); Color,Urine Yellow (Yellow); Glucose,Urine (UA) Normal (Normal); Hyaline Casts,Urine Few per lpf (None Seen); Ketones,Urine Negative (Negative); Leukocyte Esterase,Urine Negative (Negative); Mucus,Urine Few per lpf (None-Few); Nitrite,Urine Positive (Negative); PH,Urine 6.5 pH Units (5.0-8.0); Protein,Urine Trace mg/dL (Neg-Trace); RBC,Urine 30-50 per hpf (0-3); Specific Gravity,Urine 1.023 (1.010-1.025); Urobilinogen,Urine Normal (Normal)
[2020-06-04] MEDS: Melatonin 3 MG TABLET PO PRN (21:32)
[2020-06-05] MEDS: Ipratropium 1 PUFF INHALER IH SCH ×7 (00:56→23:37)
[2020-06-05] MEDS: ALPRAZolam 0.25 MG TABLET PO PRN ×2 (05:38→13:38)
[2020-06-05 06:34] LABS: Hematocrit 33.4 % (35.3-44.9); Mean Corpuscular HGB Conc 29.9 g/dL (31.6-35.5); Mean Corpuscular Hemoglobin 27.1 pg (28.0-33.3); Mean Corpuscular Volume 90.5 fL (83.0-100.0); Mean Platelet Volume 10.7 fL (9.4-12.4); Platelet Count 114 K/mcL (140-400); Red Blood Count 3.69 M/mcL (3.82-4.97); Red Cell Distribution Width 18.8 % (11.5-14.5); White Blood Count 4.3 K/mcL (4.3-11.1)
[2020-06-05 06:50] LABS: BUN/Creatinine Ratio 51 (6-26); Blood Urea Nitrogen 20 mg/dL (8-23); Calcium 8.7 mg/dL (8.6-10.3); Carbon Dioxide 31 mEq/L (23-29); Chloride 106 mEq/L (98-107); Glucose 118 mg/dL (70-105); Osmolality,Calculated 300 (280-300); Potassium 3.8 mEq/L (3.5-5.1); Sodium 143 mEq/L (136-145); eGFR For African Americans > 60 (> 60); eGFR For Non-African Americans > 60 (> 60)
[2020-06-05] MEDS: Dexamethasone Sodium Phos/PF 10 MG/ML VIAL IVP SCH (10:10)
[2020-06-05] MEDS: *HR* Enoxaparin 40 MG/0.4 ML SYRINGE SQ SCH (10:11)
[2020-06-05] MEDS: Furosemide 20 MG TABLET PO SCH (10:11)
[2020-06-05] MEDS: Loratadine 10 MG TABLET PO SCH (10:11)
[2020-06-05] MEDS: Melatonin 3 MG TABLET PO PRN (20:17)
[2020-06-06] MEDS: Ipratropium 1 PUFF INHALER IH SCH ×6 (04:36→23:30)
[2020-06-06] MEDS: Dexamethasone Sodium Phos/PF 10 MG/ML VIAL IVP SCH (08:48)
[2020-06-06] MEDS: Loratadine 10 MG TABLET PO SCH (08:49)
[2020-06-06] MEDS: Sennosides 8.6 MG TABLET PO SCH (08:49)
[2020-06-06] MEDS: Furosemide 20 MG TABLET PO SCH (08:49)
[2020-06-06] MEDS: ALPRAZolam 0.25 MG TABLET PO PRN ×3 (08:49→22:46)
[2020-06-06] MEDS: *HR* Enoxaparin 40 MG/0.4 ML SYRINGE SQ SCH (08:49)
[2020-06-06] MEDS: Benzonatate 100 MG CAPSULE PO PRN (20:16)
[2020-06-06] MEDS: Melatonin 3 MG TABLET PO PRN (20:18)
[2020-06-07] MEDS: Ipratropium 1 PUFF INHALER IH SCH ×5 (03:01→20:13)
[2020-06-07] MEDS: Saline Nasal Spray 44 ML BOTTLE NS PRN (04:40)
[2020-06-07 06:44] LABS: Hematocrit 32.7 % (35.3-44.9); Mean Corpuscular HGB Conc 30.6 g/dL (31.6-35.5); Mean Corpuscular Hemoglobin 27.9 pg (28.0-33.3); Mean Corpuscular Volume 91.3 fL (83.0-100.0); Mean Platelet Volume 10.7 fL (9.4-12.4); Nucleated Red Blood Cells 0.5 /100 WBC (0); Platelet Count 120 K/mcL (140-400); Red Blood Count 3.58 M/mcL (3.82-4.97); Red Cell Distribution Width 19.3 % (11.5-14.5)
[2020-06-07 07:22] LABS: Alanine Aminotransferase 32 Units/L (7-52); Albumin 3.2 g/dL (3.5-5.7); Albumin/Globulin Ratio 1.6 (1.1-2.2); Alkaline Phosphatase 50 Units/L (34-104); Aspartate Amino Transferase 28 Units/L (13-39); BUN/Creatinine Ratio 53 (6-26); Bilirubin,Total 0.6 mg/dL (0.3-1.0); Blood Urea Nitrogen 16 mg/dL (8-23); Calcium 8.4 mg/dL (8.6-10.3); Carbon Dioxide 26 mEq/L (23-29); Chloride 108 mEq/L (98-107); Glucose 112 mg/dL (70-105); Osmolality,Calculated 294 (280-300); Sodium 141 mEq/L (136-145); Total Protein 5.2 g/dL (6.4-8.9); eGFR For African Americans > 60 (> 60); eGFR For Non-African Americans > 60 (> 60)
[2020-06-07] MEDS: *HR* Enoxaparin 40 MG/0.4 ML SYRINGE SQ SCH (07:40)
[2020-06-07] MEDS: Dexamethasone Sodium Phos/PF 10 MG/ML VIAL IVP SCH (07:40)
[2020-06-07] MEDS: Loratadine 10 MG TABLET PO SCH (07:41)
[2020-06-07] MEDS: Furosemide 20 MG TABLET PO SCH (07:41)
[2020-06-07 08:44] LABS: Anisocytosis 1+ (Not Present); Monocytes # 0.4 K/mcL (0.0-1.3); Neutrophils # 2.5 K/mcL (1.6-8.9); Platelet Estimate Decreased (Normal)
[2020-06-07 08:45] LABS: Reactive Lymphocytes Present (Not Present)
[2020-06-07] MEDS: ALPRAZolam 0.25 MG TABLET PO PRN ×3 (09:12→20:38)
[2020-06-07] MEDS: Melatonin 3 MG TABLET PO PRN (20:36)
[2020-06-07] MEDS: Benzonatate 100 MG CAPSULE PO PRN (20:36)
[2020-06-08] MEDS: Ipratropium 1 PUFF INHALER IH SCH ×7 (03:30→23:46)
[2020-06-08 05:40] LABS: BUN/Creatinine Ratio 50 (6-26); Blood Urea Nitrogen 18 mg/dL (8-23); Calcium 8.4 mg/dL (8.6-10.3); Carbon Dioxide 23 mEq/L (23-29); Chloride 108 mEq/L (98-107); Glucose 127 mg/dL (70-105); Magnesium 2.2 mg/dL (1.6-2.6); Osmolality,Calculated 293 (280-300); Phosphorous 3.6 mg/dL (2.7-4.5); Potassium 3.9 mEq/L (3.5-5.1); Sodium 140 mEq/L (136-145); eGFR For African Americans > 60 (> 60); eGFR For Non-African Americans > 60 (> 60)
[2020-06-08] MEDS: Dexamethasone Sodium Phos/PF 10 MG/ML VIAL IVP SCH (09:04)
[2020-06-08] MEDS: Sennosides 8.6 MG TABLET PO SCH (09:04)
[2020-06-08] MEDS: *HR* Enoxaparin 40 MG/0.4 ML SYRINGE SQ SCH (09:04)
[2020-06-08] MEDS: Loratadine 10 MG TABLET PO SCH (09:04)
[2020-06-08] MEDS: Furosemide 20 MG TABLET PO SCH (09:04)
[2020-06-08 10:36] LABS: Hematocrit 34.1 % (35.3-44.9); Hemoglobin 10.4 g/dL (11.5-15.4); Mean Corpuscular HGB Conc 30.5 g/dL (31.6-35.5); Mean Corpuscular Volume 88.6 fL (83.0-100.0); Mean Platelet Volume 10.6 fL (9.4-12.4); Platelet Count 128 K/mcL (140-400); Red Blood Count 3.85 M/mcL (3.82-4.97); Red Cell Distribution Width 19.8 % (11.5-14.5); White Blood Count 5.4 K/mcL (4.3-11.1)
[2020-06-08] MEDS: ALPRAZolam 0.25 MG TABLET PO PRN ×2 (15:53→20:10)
[2020-06-08] MEDS: Benzonatate 100 MG CAPSULE PO PRN (20:10)
[2020-06-08] MEDS: Melatonin 3 MG TABLET PO PRN (20:10)
[2020-06-09] MEDS: Ipratropium 1 PUFF INHALER IH SCH ×6 (03:35→23:07)
[2020-06-09 05:35] LABS: Hemoglobin 10.8 g/dL (11.5-15.4); Mean Corpuscular Hemoglobin 27.2 pg (28.0-33.3); Mean Corpuscular Volume 90.7 fL (83.0-100.0); Mean Platelet Volume 10.3 fL (9.4-12.4); Platelet Count 142 K/mcL (140-400); Red Blood Count 3.97 M/mcL (3.82-4.97); Red Cell Distribution Width 19.7 % (11.5-14.5); White Blood Count 5.8 K/mcL (4.3-11.1)
[2020-06-09 05:56] LABS: BUN/Creatinine Ratio 43 (6-26); Blood Urea Nitrogen 18 mg/dL (8-23); Calcium 8.7 mg/dL (8.6-10.3); Carbon Dioxide 29 mEq/L (23-29); Chloride 106 mEq/L (98-107); Glucose 123 mg/dL (70-105); Osmolality,Calculated 299 (280-300); Potassium 3.5 mEq/L (3.5-5.1); Sodium 143 mEq/L (136-145); eGFR For African Americans > 60 (> 60); eGFR For Non-African Americans > 60 (> 60)
[2020-06-09] MEDS: Furosemide 20 MG TABLET PO SCH (09:40)
[2020-06-09] MEDS: *HR* Enoxaparin 40 MG/0.4 ML SYRINGE SQ SCH (09:40)
[2020-06-09] MEDS: dexAMETHasone 4 MG TABLET PO SCH (09:40)
[2020-06-09] MEDS: Loratadine 10 MG TABLET PO SCH (09:40)
[2020-06-09] MEDS: ALPRAZolam 0.25 MG TABLET PO PRN (15:25)
[2020-06-09] MEDS: Melatonin 3 MG TABLET PO PRN (19:51)
[2020-06-09] MEDS: Ondansetron ODT 4 MG TAB.RAPDIS SL PRN (19:51)
[2020-06-10] MEDS: Ipratropium 1 PUFF INHALER IH SCH ×6 (04:09→23:52)
[2020-06-10] MEDS: ALPRAZolam 0.25 MG TABLET PO PRN ×2 (05:57→15:23)
[2020-06-10] MEDS: Loratadine 10 MG TABLET PO SCH (08:59)
[2020-06-10] MEDS: *HR* Enoxaparin 40 MG/0.4 ML SYRINGE SQ SCH (08:59)
[2020-06-10] MEDS: Sennosides 8.6 MG TABLET PO SCH (08:59)
[2020-06-10] MEDS: dexAMETHasone 4 MG TABLET PO SCH (08:59)
[2020-06-10] MEDS: Furosemide 20 MG TABLET PO SCH (08:59)
[2020-06-10] MEDS: Ondansetron ODT 4 MG TAB.RAPDIS SL PRN ×2 (09:47→17:42)
[2020-06-10 10:36] LABS: Hematocrit 34.3 % (35.3-44.9); Hemoglobin 10.4 g/dL (11.5-15.4); Mean Corpuscular HGB Conc 30.3 g/dL (31.6-35.5); Mean Corpuscular Hemoglobin 27.4 pg (28.0-33.3); Mean Corpuscular Volume 90.5 fL (83.0-100.0); Mean Platelet Volume 10.4 fL (9.4-12.4); Platelet Count 151 K/mcL (140-400); Red Blood Count 3.79 M/mcL (3.82-4.97); Red Cell Distribution Width 19.9 % (11.5-14.5); White Blood Count 6.6 K/mcL (4.3-11.1)
[2020-06-10 10:52] LABS: BUN/Creatinine Ratio 59 (6-26); Blood Urea Nitrogen 19 mg/dL (8-23); Calcium 8.6 mg/dL (8.6-10.3); Carbon Dioxide 26 mEq/L (23-29); Chloride 108 mEq/L (98-107); Glucose 111 mg/dL (70-105); Osmolality,Calculated 299 (280-300); Potassium 3.4 mEq/L (3.5-5.1); Sodium 143 mEq/L (136-145); eGFR For African Americans > 60 (> 60); eGFR For Non-African Americans > 60 (> 60)
[2020-06-10] MEDS: Melatonin 3 MG TABLET PO PRN (21:07)
[2020-06-10] MEDS ORDERED: Benzocaine/Menthol 56 GM AEROSOL SPRAY TP PRN (22:55)
[2020-06-11] MEDS: Ipratropium 1 PUFF INHALER IH SCH ×6 (03:13→23:07)
[2020-06-11] MEDS: ALPRAZolam 0.25 MG TABLET PO PRN ×2 (05:25→12:18)
[2020-06-11] MEDS: Furosemide 20 MG TABLET PO SCH (09:12)
[2020-06-11] MEDS: dexAMETHasone 4 MG TABLET PO SCH (09:12)
[2020-06-11] MEDS: *HR* Enoxaparin 40 MG/0.4 ML SYRINGE SQ SCH (09:12)
[2020-06-11] MEDS: Loratadine 10 MG TABLET PO SCH (09:12)
[2020-06-11] MEDS: Benzonatate 100 MG CAPSULE PO PRN (09:12)
[2020-06-11] MEDS: Ondansetron ODT 4 MG TAB.RAPDIS SL PRN (14:43)
[2020-06-11 19:57] LABS: Adenovirus F 40/41 PCR Not detected (Not detect); Astrovirus PCR Not detected (Not detect); C.difficile Toxin A/B Gene PCR Not detected (Not detect); Campylobacter by PCR Not detected (Not detect); Cryptosporidium by PCR Not detected (Not detect); Cyclospora cayetanensis PCR Not detected (Not detect); E. coli O157 by PCR Not detected (Not detect); Entamoeba histolytica PCR Not detected (Not detect); Enteroaggregative E.coli(EAEC) Not detected (Not detect); Enteropathogenic E.coli(EPEC) Not detected (Not detect); Enterotoxigenic E.coli (ETEC) Not detected (Not detect); Giardia lamblia PCR Not detected (Not detect); Norovirus GI/GII PCR Not detected (Not detect); Plesiomonas shigelloides PCR Not detected (Not detect); Rotavirus A PCR Not detected (Not detect); Salmonella PCR Not detected (Not detect); Sapovirus PCR Not detected (Not detect); Shig/EnteroinvasiveE coli EIEC Not detected (Not detect); Shigalike tox-prod E coli STEC Not detected (Not detect); Vibrio PCR Not detected (Not detect); Vibrio cholerae PCR Not detected (Not detect); Yersinia enterocolitica PCR Not detected (Not detect)
[2020-06-11] MEDS: Melatonin 3 MG TABLET PO PRN (23:26)
[2020-06-12] MEDS: Ipratropium 1 PUFF INHALER IH SCH ×6 (03:14→23:53)
[2020-06-12] MEDS: Preparation H Ointment 57 GM TUBE TP SCH ×3 (04:38→19:59)
[2020-06-12] MEDS: ALPRAZolam 0.25 MG TABLET PO PRN ×2 (05:09→12:05)
[2020-06-12] MEDS: *HR* Enoxaparin 40 MG/0.4 ML SYRINGE SQ SCH (09:51)
[2020-06-12] MEDS: Furosemide 20 MG TABLET PO SCH (09:51)
[2020-06-12] MEDS: dexAMETHasone 4 MG TABLET PO SCH (09:51)
[2020-06-12] MEDS: Loratadine 10 MG TABLET PO SCH (09:51)
[2020-06-12 11:13] LABS: BUN/Creatinine Ratio 58 (6-26); Blood Urea Nitrogen 18 mg/dL (8-23); Calcium 8.6 mg/dL (8.6-10.3); Carbon Dioxide 24 mEq/L (23-29); Chloride 107 mEq/L (98-107); Glucose 149 mg/dL (70-105); Osmolality,Calculated 297 (280-300); Potassium 3.9 mEq/L (3.5-5.1); Sodium 141 mEq/L (136-145); eGFR For African Americans > 60 (> 60); eGFR For Non-African Americans > 60 (> 60)
[2020-06-12] MEDS: Melatonin 3 MG TABLET PO PRN (20:05)
[2020-06-12 20:38] LABS: Hematocrit 37.6 % (35.3-44.9); Mean Corpuscular HGB Conc 29.3 g/dL (31.6-35.5); Mean Corpuscular Hemoglobin 27.4 pg (28.0-33.3); Mean Corpuscular Volume 93.5 fL (83.0-100.0); Mean Platelet Volume 11.1 fL (9.4-12.4); Platelet Count 136 K/mcL (140-400); Red Blood Count 4.02 M/mcL (3.82-4.97); Red Cell Distribution Width 20.3 % (11.5-14.5); White Blood Count 8.7 K/mcL (4.3-11.1)
[2020-06-13] MEDS: Ipratropium 1 PUFF INHALER IH SCH ×6 (03:36→23:28)
[2020-06-13] MEDS: Ondansetron ODT 4 MG TAB.RAPDIS SL PRN (08:52)
[2020-06-13] MEDS: dexAMETHasone 4 MG TABLET PO SCH (08:52)
[2020-06-13] MEDS: ALPRAZolam 0.25 MG TABLET PO PRN ×2 (08:52→17:23)
[2020-06-13] MEDS: Loratadine 10 MG TABLET PO SCH (08:52)
[2020-06-13] MEDS: Furosemide 20 MG TABLET PO SCH (08:52)
[2020-06-13] MEDS: *HR* Enoxaparin 40 MG/0.4 ML SYRINGE SQ SCH (08:53)
[2020-06-13] MEDS: Preparation H Ointment 57 GM TUBE TP SCH ×2 (08:53→20:27)
[2020-06-13] MEDS ORDERED: Prochlorperazine 10 MG/2 ML VIAL IVP PRN (12:51)
[2020-06-14] MEDS: ALPRAZolam 0.25 MG TABLET PO PRN ×3 (04:12→15:42)
[2020-06-14] MEDS: Ipratropium 1 PUFF INHALER IH SCH ×6 (04:14→23:43)
[2020-06-14] MEDS: *HR* Enoxaparin 40 MG/0.4 ML SYRINGE SQ SCH (09:20)
[2020-06-14] MEDS: dexAMETHasone 4 MG TABLET PO SCH (09:20)
[2020-06-14] MEDS: Loratadine 10 MG TABLET PO SCH (09:20)
[2020-06-14] MEDS: Furosemide 20 MG TABLET PO SCH (09:20)
[2020-06-14] MEDS: Ondansetron ODT 4 MG TAB.RAPDIS SL PRN ×2 (09:37→17:52)
[2020-06-14] MEDS: Preparation H Ointment 57 GM TUBE TP SCH ×2 (09:46→22:25)
[2020-06-14] MEDS ORDERED: Isovue-370 500 ML BOTTLE IVP ONE (20:33)
[2020-06-15] MEDS: ALPRAZolam 0.25 MG TABLET PO PRN ×2 (03:25→11:16)
[2020-06-15] MEDS: Ipratropium 1 PUFF INHALER IH SCH ×6 (03:51→23:29)
[2020-06-15] MEDS: Ondansetron ODT 4 MG TAB.RAPDIS SL PRN ×2 (06:31→17:27)
[2020-06-15] MEDS: Loratadine 10 MG TABLET PO SCH (08:23)
[2020-06-15] MEDS: Preparation H Ointment 57 GM TUBE TP SCH ×2 (08:24→19:52)
[2020-06-15] MEDS: Furosemide 20 MG TABLET PO SCH (08:24)
[2020-06-15] MEDS: *HR* Enoxaparin 40 MG/0.4 ML SYRINGE SQ SCH (08:24)
[2020-06-15] MEDS ORDERED: ALPRAZolam 0.25 MG TABLET PO ONE (16:41)
[2020-06-15] MEDS ORDERED: 0.9 % Sodium Chloride 500 ML IVC ONE (17:17)
[2020-06-15] MEDS ORDERED: 0.9 % Sodium Chloride 500 ML ONE (17:20)
[2020-06-15] MEDS: Dexamethasone 4 MG/ML VIAL IVP SCH (18:00)
[2020-06-16] MEDS: Ipratropium 1 PUFF INHALER IH SCH ×3 (03:44→11:22)
[2020-06-16] MEDS: Furosemide 20 MG TABLET PO SCH (08:13)
[2020-06-16] MEDS: Dexamethasone 4 MG/ML VIAL IVP SCH (08:13)
[2020-06-16] MEDS: Loratadine 10 MG TABLET PO SCH (08:13)
[2020-06-16] MEDS: *HR* Enoxaparin 40 MG/0.4 ML SYRINGE SQ SCH (08:13)
[2020-06-16] MEDS: Preparation H Ointment 57 GM TUBE TP SCH ×2 (08:14→20:36)
[2020-06-16] MEDS: ALPRAZolam 0.25 MG TABLET PO PRN ×2 (08:16→15:30)
[2020-06-16] MEDS ORDERED: Sennosides 8.6 MG TABLET PO ONE (11:17)
[2020-06-16] MEDS: levoFLOXacin 750 MG TABLET PO SCH (11:27)
[2020-06-16] MEDS: Ondansetron ODT 4 MG TAB.RAPDIS SL PRN ×2 (12:16→19:41)
[2020-06-16] MEDS: Acetylcysteine 10% 2 ML INHSOL IH SCH ×2 (15:23→21:18)
[2020-06-16] MEDS: Ipratropium/Albuterol Neb 3 ML IH SCH ×2 (15:23→21:18)
[2020-06-16] MEDS: Melatonin 3 MG TABLET PO PRN (23:05)
[2020-06-17 01:40] LABS: Mean Corpuscular HGB Conc 29.4 g/dL (31.6-35.5); Mean Corpuscular Hemoglobin 26.8 pg (28.0-33.3); Mean Corpuscular Volume 91.4 fL (83.0-100.0); Mean Platelet Volume 10.1 fL (9.4-12.4); Nucleated Red Blood Cells 0.7 /100 WBC (0); Platelet Count 117 K/mcL (140-400); Red Blood Count 3.39 M/mcL (3.82-4.97); Red Cell Distribution Width 19.9 % (11.5-14.5); White Blood Count 6.7 K/mcL (4.3-11.1)
[2020-06-17 01:47] LABS: Hemoglobin 9.1 g/dL (11.5-15.4)
[2020-06-17 01:54] LABS: BUN/Creatinine Ratio 29 (6-26); Blood Urea Nitrogen 10 mg/dL (8-23); Calcium 8.2 mg/dL (8.6-10.3); Carbon Dioxide 30 mEq/L (23-29); Chloride 104 mEq/L (98-107); Glucose 125 mg/dL (70-105); Osmolality,Calculated 293 (280-300); Potassium 3.9 mEq/L (3.5-5.1); Sodium 141 mEq/L (136-145); eGFR For African Americans > 60 (> 60); eGFR For Non-African Americans > 60 (> 60)
[2020-06-17 02:10] LABS: Anisocytosis 1+ (Not Present); Lymphocytes # 2.6 K/mcL (0.6-4.6); Macrocytosis Present (Not Present); Monocytes # 0.3 K/mcL (0.0-1.3); Neutrophils # 3.6 K/mcL (1.6-8.9); Platelet Estimate Slight Decrease (Normal); Reactive Lymphocytes Present (Not Present); Smudge Cells Present (Not Present)
[2020-06-17] MEDS: Ipratropium/Albuterol Neb 3 ML IH SCH ×4 (03:47→22:18)
[2020-06-17] MEDS: Acetylcysteine 10% 2 ML INHSOL IH SCH ×3 (03:47→22:18)
[2020-06-17] MEDS: Dexamethasone 4 MG/ML VIAL IVP SCH (09:04)
[2020-06-17] MEDS: *HR* Enoxaparin 40 MG/0.4 ML SYRINGE SQ SCH (09:04)
[2020-06-17] MEDS: Furosemide 20 MG TABLET PO SCH (09:05)
[2020-06-17] MEDS: Preparation H Ointment 57 GM TUBE TP SCH ×2 (09:05→19:59)
[2020-06-17] MEDS: levoFLOXacin 750 MG TABLET PO SCH (09:05)
[2020-06-17] MEDS: Loratadine 10 MG TABLET PO SCH (09:05)
[2020-06-17] MEDS: ALPRAZolam 0.25 MG TABLET PO PRN (09:41)
[2020-06-17] MEDS: Melatonin 3 MG TABLET PO PRN (19:59)
[2020-06-18] MEDS: Ipratropium/Albuterol Neb 3 ML IH SCH ×4 (03:37→21:24)
[2020-06-18 04:56] LABS: BUN/Creatinine Ratio 26 (6-26); Blood Urea Nitrogen 9 mg/dL (8-23); Calcium 8.4 mg/dL (8.6-10.3); Carbon Dioxide 26 mEq/L (23-29); Chloride 107 mEq/L (98-107); Glucose 114 mg/dL (70-105); Osmolality,Calculated 296 (280-300); Potassium 4.1 mEq/L (3.5-5.1); Sodium 143 mEq/L (136-145); eGFR For African Americans > 60 (> 60); eGFR For Non-African Americans > 60 (> 60)
[2020-06-18 07:07] LABS: Hematocrit 32.8 % (35.3-44.9); Hemoglobin 9.6 g/dL (11.5-15.4); Mean Corpuscular HGB Conc 29.3 g/dL (31.6-35.5); Mean Corpuscular Volume 92.1 fL (83.0-100.0); Mean Platelet Volume 10.7 fL (9.4-12.4); Nucleated Red Blood Cells 0.9 /100 WBC (0); Platelet Count 129 K/mcL (140-400); Red Blood Count 3.56 M/mcL (3.82-4.97); White Blood Count 6.3 K/mcL (4.3-11.1)
[2020-06-18 08:10] LABS: Lymphocytes # 3.1 K/mcL (0.6-4.6); Monocytes # 0.1 K/mcL (0.0-1.3); Platelet Estimate Slight Decrease (Normal); Polychromasia 1+ (Not Present)
[2020-06-18 08:11] LABS: Anisocytosis 1+ (Not Present); Reactive Lymphocytes Present (Not Present)
[2020-06-18] MEDS: levoFLOXacin 750 MG TABLET PO SCH (09:02)
[2020-06-18] MEDS: Dexamethasone 4 MG/ML VIAL IVP SCH (09:02)
[2020-06-18] MEDS: Loratadine 10 MG TABLET PO SCH (09:02)
[2020-06-18] MEDS: Furosemide 20 MG TABLET PO SCH (09:02)
[2020-06-18] MEDS: *HR* Enoxaparin 40 MG/0.4 ML SYRINGE SQ SCH (09:03)
[2020-06-18] MEDS: Preparation H Ointment 57 GM TUBE TP SCH ×2 (09:03→19:43)
[2020-06-18] MEDS: ALPRAZolam 0.25 MG TABLET PO PRN ×2 (09:04→19:43)
[2020-06-18] MEDS: Acetylcysteine 10% 2 ML INHSOL IH SCH ×3 (10:24→21:24)
[2020-06-18] MEDS: Melatonin 3 MG TABLET PO PRN (19:43)
[2020-06-19] MEDS: Ipratropium/Albuterol Neb 3 ML IH SCH ×4 (03:49→22:32)
[2020-06-19] MEDS: ALPRAZolam 0.25 MG TABLET PO PRN ×2 (05:27→18:47)
[2020-06-19] MEDS: Acetylcysteine 10% 2 ML INHSOL IH SCH ×3 (08:11→22:32)
[2020-06-19] MEDS: Furosemide 20 MG TABLET PO SCH (08:17)
[2020-06-19] MEDS: levoFLOXacin 750 MG TABLET PO SCH (08:17)
[2020-06-19] MEDS: Loratadine 10 MG TABLET PO SCH (08:17)
[2020-06-19] MEDS: Dexamethasone 4 MG/ML VIAL IVP SCH (08:17)
[2020-06-19] MEDS: *HR* Enoxaparin 40 MG/0.4 ML SYRINGE SQ SCH (08:18)
[2020-06-19] MEDS: Preparation H Ointment 57 GM TUBE TP SCH ×2 (08:18→19:32)
[2020-06-19] MEDS: Benzonatate 100 MG CAPSULE PO PRN (09:08)
[2020-06-19] MEDS ORDERED: ALPRAZolam 0.5 MG TABLET PO ONE (09:17)
[2020-06-19] MEDS ORDERED: *HR* Metoprolol 5 MG/5 ML VIAL IVP ONE (10:58)
[2020-06-19 14:11] LABS: Hematocrit 32.7 % (35.3-44.9); Hemoglobin 9.8 g/dL (11.5-15.4); Mean Corpuscular Hemoglobin 27.5 pg (28.0-33.3); Mean Corpuscular Volume 91.9 fL (83.0-100.0); Mean Platelet Volume 10.7 fL (9.4-12.4); Monocytes # 0.4 K/mcL (0.0-1.3); Nucleated Red Blood Cells 0.6 /100 WBC (0); Platelet Count 126 K/mcL (140-400); Red Blood Count 3.56 M/mcL (3.82-4.97); Red Cell Distribution Width 19.9 % (11.5-14.5); White Blood Count 6.8 K/mcL (4.3-11.1)
[2020-06-19 14:30] LABS: BUN/Creatinine Ratio 24 (6-26); Blood Urea Nitrogen 10 mg/dL (8-23); Calcium 8.2 mg/dL (8.6-10.3); Carbon Dioxide 26 mEq/L (23-29); Chloride 103 mEq/L (98-107); Glucose 165 mg/dL (70-105); Osmolality,Calculated 291 (280-300); Potassium 3.7 mEq/L (3.5-5.1); Sodium 139 mEq/L (136-145); eGFR For African Americans > 60 (> 60); eGFR For Non-African Americans > 60 (> 60)
[2020-06-19 14:49] LABS: Anisocytosis 1+ (Not Present); Eosinophils # 0.1 K/mcL (0.0-0.6); Neutrophils # 4.2 K/mcL (1.6-8.9); Polychromasia 1+ (Not Present); Reactive Lymphocytes Present (Not Present)
[2020-06-19 14:51] LABS: Platelet Estimate Slight Decrease (Normal); Stomatocytes 1+ (Not Present)
[2020-06-20] MEDS: ALPRAZolam 0.25 MG TABLET PO PRN ×3 (01:01→20:35)
[2020-06-20] MEDS: Melatonin 3 MG TABLET PO PRN ×2 (03:10→20:36)
[2020-06-20] MEDS: Ipratropium/Albuterol Neb 3 ML IH SCH ×4 (03:59→21:55)
[2020-06-20] MEDS: levoFLOXacin 750 MG TABLET PO SCH (08:03)
[2020-06-20] MEDS: Loratadine 10 MG TABLET PO SCH (08:03)
[2020-06-20] MEDS: Dexamethasone 4 MG/ML VIAL IVP SCH (08:03)
[2020-06-20] MEDS: *HR* Enoxaparin 40 MG/0.4 ML SYRINGE SQ SCH (08:03)
[2020-06-20] MEDS: Furosemide 20 MG TABLET PO SCH (08:03)
[2020-06-20] MEDS: Preparation H Ointment 57 GM TUBE TP SCH ×2 (08:04→20:39)
[2020-06-20] MEDS: Ondansetron ODT 4 MG TAB.RAPDIS SL PRN (08:32)
[2020-06-20] MEDS: Acetylcysteine 10% 2 ML INHSOL IH SCH ×3 (10:50→21:55)
[2020-06-20] MEDS: Fluticasone Propionate Nasal 50 MCG/SPRAY BOTTLE NS SCH (17:34)
[2020-06-20] MEDS ORDERED: *HR* LORazepam 2 MG/ML VIAL IVP STA (18:24)
[2020-06-21] MEDS: Ondansetron ODT 4 MG TAB.RAPDIS SL PRN (00:52)
[2020-06-21] MEDS: Benzonatate 100 MG CAPSULE PO PRN (00:52)
[2020-06-21] MEDS: Ipratropium/Albuterol Neb 3 ML IH SCH ×3 (03:52→15:05)
[2020-06-21] MEDS: ALPRAZolam 0.25 MG TABLET PO PRN ×2 (04:39→12:27)
[2020-06-21 05:45] LABS: Hematocrit 33.6 % (35.3-44.9); Mean Corpuscular HGB Conc 29.8 g/dL (31.6-35.5); Mean Corpuscular Hemoglobin 27.5 pg (28.0-33.3); Mean Corpuscular Volume 92.6 fL (83.0-100.0); Mean Platelet Volume 10.5 fL (9.4-12.4); Monocytes # 0.4 K/mcL (0.0-1.3); Nucleated Red Blood Cells 0.4 /100 WBC (0); Platelet Count 120 K/mcL (140-400); Red Blood Count 3.63 M/mcL (3.82-4.97); Red Cell Distribution Width 20.1 % (11.5-14.5); White Blood Count 5.4 K/mcL (4.3-11.1)
[2020-06-21 06:06] LABS: BUN/Creatinine Ratio 26 (6-26); Blood Urea Nitrogen 11 mg/dL (8-23); Calcium 8.2 mg/dL (8.6-10.3); Carbon Dioxide 30 mEq/L (23-29); Chloride 103 mEq/L (98-107); Glucose 111 mg/dL (70-105); Osmolality,Calculated 292 (280-300); Potassium 3.1 mEq/L (3.5-5.1); Sodium 141 mEq/L (136-145); eGFR For African Americans > 60 (> 60); eGFR For Non-African Americans > 60 (> 60)
[2020-06-21 06:19] LABS: Lymphocytes # 1.5 K/mcL (0.6-4.6); Neutrophils # 3.4 K/mcL (1.6-8.9)
[2020-06-21 06:20] LABS: Anisocytosis 1+ (Not Present); Platelet Estimate Slight Decrease (Normal); Polychromasia 1+ (Not Present); Reactive Lymphocytes Present (Not Present)
[2020-06-21] MEDS: Acetylcysteine 10% 2 ML INHSOL IH SCH ×2 (09:56→15:05)
[2020-06-21] MEDS: Dexamethasone 4 MG/ML VIAL IVP SCH (10:00)
[2020-06-21] MEDS: Fluticasone Propionate Nasal 50 MCG/SPRAY BOTTLE NS SCH (10:00)
[2020-06-21] MEDS: Furosemide 20 MG TABLET PO SCH (10:01)
[2020-06-21] MEDS: *HR* Enoxaparin 40 MG/0.4 ML SYRINGE SQ SCH (10:01)
[2020-06-21] MEDS: levoFLOXacin 750 MG TABLET PO SCH (10:01)
[2020-06-21] MEDS: Loratadine 10 MG TABLET PO SCH (10:01)
[2020-06-21] MEDS: Preparation H Ointment 57 GM TUBE TP SCH (10:01)
[2020-06-21] MEDS: Saline Nasal Spray 44 ML BOTTLE NS PRN (10:03)
[2020-06-21 11:24] VITALS: BP 98/67
== END 2020-06-21 15:11 | DRG 871 ==
LOC: CDU → SUATTDRO 13:30 → 2NENU 04-30 18:41 → 2ANU 06-10 12:44
PROVIDERS: ADMIT Family Medicine; ATTEND Internal Medicine